=== PATIENT | female | born 1955 | race Caucasian/White ===

== ENCOUNTER 2017-07-24 15:44 | Inpatient (IN) | payer MEDICAID ==
[~2017-07-24] VITALS: Ht 170.2 cm; Wt 111.6 kg
[~2017-07-24 15:44] MED LIST: ACETAMINOPHEN-1 EAC1 PO; ACYCLOVIR 400400 MG PO; AMBIEN 5 MG TABL5 M1 PO; ASPIR 8181 MG PO; ATIVAN1 MG PO; AUGMENTIN 875875 MG PO; BACTRIM DS TAB1 EACH PO; BUTRANS1 EAC1 TD; CENTANY30 GM TP; CEPHALEXIN 500500 M3 PO; CLONAZEPAM 0.50.5 M1 PO; CLONAZEPAM 1 MG1 M1 PO; CODEINE-GUAIFE120 ML PO; CRESTOR10 MG PO; DENAVIR1.5 GM TP; DIFLUCAN150 MG PO; DIFLUCAN200 MG PO; FAMCICLOVIR250 MG PO; FLEXERIL PO; GLUMETZA1000 PO; HUMALOG100 UNIT/1 SUBQ; HYDROCHLOROTHIA25 M2 PO; HYDROCODON-ACE1 EAC8 PO; HYDROCODONE-AP1 EA11 PO; HYDROCODONE-AP1 EAC6 PO; HYDROCODONE-APA1 TA1 PO; IBUPROFEN 800800 M1 PO; IBUPROFEN IB200 MG PO; KEFLEX500 M1 PO; KEFLEX500 MG PO; KLOR-CON 1010 MEQ PO; LASIX 20 MG TAB20 MG PO; LEVAQUIN 500 M500 M2 PO; LEVAQUIN 750 M750 MG PO; LEXAPRO20 MG PO; LIDOCAINE 22 %/30 GM TOP; LIPITOR 20 MG T20 M1 PO; LISINOPRIL40 MG PO; MAG-AL PLUS SUS30 ML PO; MEDROLDOSEPACK PO; METFORMIN HCL500 MG PO; MIRALAX17 GM PO; MOM PO; NEURONTIN100 MG PO; NORCO 10-325 T1 EACH PO; NORCO 5-325 TA1 EACH PO; NORVASC5 MG PO; NOVOLIN R100 UNIT/3 SUBQ; PERCOCET PO; PROTONIX40 M1 PO; RANITIDINE 150150 M1 PO; ROBAXIN 750 MG750 M1 PO; ROBAXIN 750 MG750 MG PO; SONATA5 M1 PO; TESSALON PERLE100 MG PO; TRAZODONE 150150 M1 PO; TYLENOL325 MG PO; UNICOMPLEX M TA1 TA1 PO; VALACYCLOVIR HCL1 GM PO; VALACYCLOVIR1000 MG PO; VALIUM5 MG PO; VENTOLIN HFA 1818 GM INH; XARELTO15 MG PO; XARELTO20 MG PO; ZANAFLEX4 MG PO; ZANTAC 150MG T150 MG PO; ZOCOR20 MG PO; ZOCOR40 MG PO
[2017-07-24 15:46] VITALS: BP 101/66
[2017-07-24] MEDS ORDERED: BACTRIM DS TAB1 EACH PO (15:49)
[2017-07-24 18:06] LABS: ABSOLUTE BASOPHILS 0.1 thou/uL (0.0-0.2); ABSOLUTE LYMPHOCYTES 2.1 thou/uL (0.8-5.3); ABSOLUTE MONOCYTES 0.7 thou/uL (0.0-1.2); ABSOLUTE NEUTROPHILS 8.3 thou/uL (1.6-8.1); BASOPHILS 0.6 %; EOSINOPHILS 0.4 %; HEMATOCRIT 38.8 % (37.0-47.0); HEMOGLOBIN 12.8 gm/dL (12.0-15.0); LYMPHOCYTES 18.7 %; MCH 28.2 pg (26.0-34.0); MCHC 32.8 g/dL (28.0-37.0); MCV 85.8 fL (80.0-100.0); MONOCYTES 5.9 %; MPV 7.5 fl. (7.2-11.1); NUCLEATED RBCS 0 /100WBC; PLATELET COUNT* 346 thou/uL (150-400); POLYS 74.4 %; RBC 4.53 mil/uL (4.20-5.00); RDW-CV 14.8 % (10.5-14.5); WBC 11.1 thou/uL (4.0-11.0)
[2017-07-24 18:15] LABS: ANION GAP 8 mmol/L (7-16); BUN 10 mg/dL (7-18); CALCIUM 8.9 mg/dL (8.5-10.1); CHLORIDE 102 mmol/L (98-107); CO2 29 mmol/L (21-32); CREATININE 0.8 mg/dL (0.6-1.3); GLUCOSE 120 mg/dL (70-99); POTASSIUM 4.3 mmol/L (3.5-5.1); SODIUM 139 mmol/L (136-145)
[2017-07-24 18:22] LABS: ALBUMIN 3.5 g/dL (3.4-5.0); ALKALINE PHOSPHATASE 88 U/L (46-116); SGOT 20 U/L (15-37); SGPT 24 U/L (30-65); TOTAL BILIRUBIN 0.2 mg/dL (<0.1-1.0); TOTAL PROTEIN 7.4 g/dL (6.4-8.2); TROPONIN-I LEVEL <0.06 ng/mL (<0.06)
[2017-07-24 18:43] VITALS: BP 101/66
[2017-07-24] MEDS ORDERED: VICTOZA0.6 MG/0.1 SUBQ (20:24)
[2017-07-24] MEDS ORDERED: LANTUS100 UNIT/M SUBQ (20:25)
[2017-07-25 00:45] VITALS: BP 130/58
[2017-07-25 08:09] VITALS: BP 112/59
--- NOTE | 2017-07-25 12:50 | EKG ---
[place] [address] ELECTROCARDIOGRAM REPORT Name: IESHA HERNANDEZ Room: [address] ADM IN M.R.#: [id number] Admission: 07/24/17 Attend Phys: Frank Alatorre Discharge: Date of : 57 Report #: [id number] THIS REPORT FOR: //name// [facility] ED Test Date: 2017-07-24 Test Time: 17:51:54 Pat Name: IESHA HERNANDEZ Department: Room: [facility] Gender: F Camp Boss: SÁNCHEZ Leach : 1955 Requested By: Duke Polk Order Number: [id number] MD: Carlos Pena Measurements Intervals [place] Rate: 100 P: 35 [place]: 145 QRS: 13 QRSD: 90 T: 31 QT: 343 QTc: 443 Interpretive Statements Sinus tachycardia Compared to ECG 05/12/2017 13:34:16 Sinus rhythm no longer present Electronically Signed On 07-25-2017 12:50:12 INVESTOR RELATIONS DIRECTOR by Carlos Pena [email or web address] <ELECTRONICALLY SIGNED> By: Carlos Pena MD, [facility] 07/25/17 1250 1751 175 Carlos Pena MD, FACC /EPI
[2017-07-25 13:34] VITALS: BP 112/59
[2017-07-25 15:45] VITALS: BP 115/78
[2017-07-25 20:20] VITALS: BP 151/68
[2017-07-25 23:30] VITALS: BP 124/72
[2017-07-26 04:44] VITALS: BP 142/62
[2017-07-26 04:45] LABS: HEMATOCRIT 36.5 % (37.0-47.0); HEMOGLOBIN 12.1 gm/dL (12.0-15.0)
[2017-07-26 08:08] VITALS: BP 136/64
[2017-07-26 18:31] VITALS: BP 122/72
[2017-07-26 20:00] VITALS: BP 126/79; BP 97/57
[2017-07-26 23:21] VITALS: BP 119/73
[2017-07-27 04:18] LABS: HEMATOCRIT 32.6 % (37.0-47.0); MCH 28.8 pg (26.0-34.0); MCHC 33.8 g/dL (28.0-37.0); MCV 85.1 fL (80.0-100.0); MPV 8.1 fl. (7.2-11.1); RBC 3.83 mil/uL (4.20-5.00); RDW-CV 14.7 % (10.5-14.5); WBC 8.4 thou/uL (4.0-11.0)
[2017-07-27 04:51] LABS: ALBUMIN 2.9 g/dL (3.4-5.0); CALCIUM 8.7 mg/dL (8.5-10.1); CREATININE 0.9 mg/dL (0.6-1.3); MAGNESIUM 1.7 mg/dL (1.8-2.4); POTASSIUM 4.2 mmol/L (3.5-5.1); TOTAL BILIRUBIN 0.3 mg/dL (<0.1-1.0)
[2017-07-27 08:00] VITALS: BP 128/68
[2017-07-27 16:17] VITALS: BP 125/63
[2017-07-27 19:24] LABS: CREATININE 0.7 mg/dL (0.6-1.3)
[2017-07-27 19:26] LABS: POTASSIUM 4.8 mmol/L (3.5-5.1)
[2017-07-27 20:00] VITALS: BP 124/43
[2017-07-28 00:30] VITALS: BP 125/79
[2017-07-28 03:53] VITALS: BP 135/71
[2017-07-28 08:00] VITALS: BP 128/63
[2017-07-28 15:42] VITALS: BP 111/69
[2017-07-28 20:30] VITALS: BP 124/49
[2017-07-29 08:31] VITALS: BP 142/80
[2017-07-29 16:00] VITALS: BP 112/44
[2017-07-30 00:16] VITALS: BP 113/53
[2017-07-30 03:50] VITALS: BP 119/57
[2017-07-30 08:00] VITALS: BP 99/61
[2017-07-30 16:00] VITALS: BP 131/68
[2017-07-30 20:00] VITALS: BP 131/66
[2017-07-30 20:03] LABS: URINE BILIRUBIN NEGATIVE (Negative); URINE BLOOD NEGATIVE (Negative); URINE CLARITY CLEAR; URINE COLOR YELLOW; URINE GLUCOSE-RANDOM NEGATIVE (Negative); URINE KETONES NEGATIVE (Negative); URINE LEUKOCYTES NEGATIVE (Negative); URINE NITRITE NEGATIVE (Negative); URINE PROTEIN NEGATIVE (Negative); URINE SPECIFIC GRAVITY <= 1.005 (1.005-1.030); URINE UROBILINOGEN 0.2 E.U./dl (0.2-1.0)
[2017-07-31 00:50] VITALS: BP 144/72
[2017-07-31 03:39] LABS: HEMATOCRIT 31.5 % (37.0-47.0); HEMOGLOBIN 10.8 gm/dL (12.0-15.0); MCH 29.2 pg (26.0-34.0); MCHC 34.1 g/dL (28.0-37.0); MCV 85.5 fL (80.0-100.0); RBC 3.68 mil/uL (4.20-5.00); RDW-CV 14.9 % (10.5-14.5); WBC 5.5 thou/uL (4.0-11.0)
[2017-07-31 03:58] LABS: CREATININE 0.9 mg/dL (0.6-1.3); POTASSIUM 4.8 mmol/L (3.5-5.1)
[2017-07-31 07:53] VITALS: BP 153/78
[2017-07-31 13:33] VITALS: BP 151/73
[2017-07-31] MEDS ORDERED: EXTRA STRENGTH85 GM TOP (14:54)
[2017-07-31] MEDS ORDERED: ELIQUIS5 MG PO (14:54)
[2017-07-31] MEDS ORDERED: NORCO 7.5-3251 EACH PO (14:55)
[2017-07-31] MEDS ORDERED: OXYCODONE HCL15 MG PO (14:55)
[2017-07-31] MEDS ORDERED: ANECREAM5 GM TOP (14:55)
[2017-07-31 15:33] VITALS: BP 132/54
[2017-07-31 18:15] VITALS: BP 132/54
[2017-07-31 20:00] VITALS: BP 130/61
[2017-08-01 07:36] VITALS: BP 141/79
[2017-08-01 08:57] VITALS: BP 141/79
--- NOTE | 2017-08-09 07:37 | OP ---
[address] [address] OPERATIVE REPORT Name: IESHA HERNANDEZ Room: [address] IN ..#: [id number] Admission: 07/24/17 Attend Phys: Frank Alatorre Discharge: 08/01/17 Date of : 57 Report #: [id number] THIS REPORT FOR: //name// CC: Maxine Saravia DICTATED BY: Darius Kurtz DO DATE OF SERVICE: 07/25/2017 PREOPERATIVE DIAGNOSIS: Valgus impacted right femoral neck fracture. POSTOPERATIVE DIAGNOSIS: Valgus impacted right femoral neck fracture. PROCEDURE PERFORMED: 1. In situ pin fixation of the right valgus impacted femoral neck fracture. 2. Physician guided fluoroscopy, less than 1 hour. SURGEON: Giovanni Otto DO GREENS CUTTER: Darius Kurtz DO; Hannah Herrera DO ANESTHESIA: General. ESTIMATED BLOOD LOSS: 50 mL. SPECIMENS: None. COMPLICATIONS: None apparent. IMPLANTS: Cameron 6.5 mm cannulated screws with the following lengths: 1. 95 mm. 2. 95 mm. 3. 85 mm. INDICATIONS FOR PROCEDURE: The patient is a 62-year-old female who we were asked to see in regards to injury to her right hip. On 07/01/2017, she had a right hip arthroscopy and stem cell procedure done elsewhere. She states she was doing well; however, on 07/24/2017 she sustained a fall at home and landed directly on her right hip. She had immediate pain, was unable to bear weight. She was brought to the ED where x-rays and a CT were obtained. She was found to have a valgus impacted femoral neck fracture. For this reason, our services were consulted. We recommended in situ screw fixation. DESCRIPTION OF PROCEDURE: The patient was seen in the preoperative area where the risks, benefits, and alternatives of [place] [address] OPERATIVE REPORT Name: IESHA HERNANDEZ Room: [address] IN [facility].#: [id number] Admission: 07/24/17 Attend Phys: Frank Alatorre Discharge: 08/01/17 Date of : 57 Report #: [id number] questions were answered and she verbalized understanding. Written consent was obtained. The operative site was marked. The patient was then brought back to the operative suite and placed supine on a well-padded traction table. She was given the benefit of general LMA anesthesia. The operative leg was placed in a traction boot and the nonoperative leg was well padded and secured into place. C-arm was brought in and x-rays were obtained. The fracture was found to still be in a nondisplaced valgus impacted position. The right lower extremity was prepped and draped in normal sterile fashion. A surgical timeout was performed where again the side, site, and procedure were verified. Everyone present was in agreement. Fluoroscopy was used to determine the appropriate starting point. Once identified, a sharp dissection was performed through the skin and subcutaneous tissues through the IT band down to the level of bone. Our starting point for the inferior screw was identified using C-arm fluoroscopy. Once found to be in an appropriate position, the wire was introduced and brought to the subchondral bone. After this was in appropriate position confirmed on AP and lateral images, the guide was placed. The posterior superior screw was introduced and brought to subchondral bone, this was followed by the anterior superior. Once these were all in acceptable position, the drill was used to dilate the outer cortex. The screws were measured and found to be 95 mm for the inferior screw, 95 mm for the posterior superior screw and 90 mm for the anterior superior screw. These were introduced and screwed into place until they were found to be in appropriate position on imaging. The anterior superior screw was thought to be slightly too long, so the 90 mm screw was removed and an 85 mm screw was introduced. Once in acceptable position, final x-rays were obtained and saved to the PACS system. The wound was thoroughly irrigated. The IT band was closed with 0 Vicryl in a [id number]-vn-[id number] fashion. The subcuticular layer was closed with 2-0 Vicryl in simple interrupted inverted fashion. Skin was closed with andi. Sterile dressings were applied. The patient was awoken from anesthesia and transferred to PACU in stable condition. She tolerated this procedure well without obvious complications. Needle and sponge counts were correct x 2. Dr. Otto was present for all aspects of the case. <ELECTRONICALLY SIGNED> By: Rodrigo Danielson DO 08/09/17 0737 11 2046Alan Merrill Otto DO /nt
--- NOTE | 2017-08-26 15:02 | CON ---
[address] [address] CONSULTATION Name: IESHA HERNANDEZ Room: [address] IN M.R.#: [id number] Admission: 07/24/17 Attend Phys: Frank Alatorre Discharge: 08/01/17 Date of : 57 Report #: [id number] THIS REPORT FOR: //name// CC: Maxine Saravia REASON FOR CONSULTATION: Evaluation and recommendations regarding post-acute rehabilitation. HISTORY OF PRESENT ILLNESS: The patient is a 62-year-old female who was admitted status post fall from standing height on to the right side, sustaining a right femoral subcapital fracture which is status post IM nailing by Orthopedics. In the postoperative period, she has been participating in physical and occupational therapy and will need ongoing physical and occupational therapy to remain and return to independent to modified independent level of care. Her previous level of function was independent to modified independent with activities of daily living. She had recently had what sounds like a stem cell procedure done for that right hip pain and DJD. It apparently resulted in resolution of her pain; however, she fell onto that side and sustained a fracture. She does have multiple medical comorbidities including uncontrolled diabetes, chronic back pain, edema, hypertension, hidradenitis, hypercholesterolemia, insomnia, pilonidal cyst, ovary removed from tubal ligation, sleep apnea on CPAP in the past but no longer utilizing, removal of a lipoma, history of some anxiety, multiple bouts with pneumonia. She is currently at modified independent with bed mobility, standby assist with transfers, minimum assistance with 150 feet in gait. She is working with occupational therapy as well as modified independent with OT mobility, modified independent with grooming, bathing has not been tested, setup for upper body dressing and supervision for lower body dressing. It does not appear as though speech and language pathology has been consulted. She resides at home alone, has not utilized home health in the past, 17 steps to enter her apartment. She does have some restrictions to her Medicaid. It was also apparently inactive, but a professor of genetics has helped her to reactivate that. FAMILY HISTORY: Heart disease. SOCIAL HISTORY: She denies tobacco or recreational drug use, but she does drink one drink on special occasions. REVIEW OF SYSTEMS: A 10-point review of systems is done and is negative except as mentioned in HPI, specifically no fever, chest pain, shortness of breath, abdominal pain or distention. MEDICATIONS: Reviewed and are available in the [facility]. She is currently participating with physical therapy. ASSESSMENT: [place] [address] CONSULTATION Name: IESHA HERNANDEZ Room: [address] IN ..#: [id number] Admission: 07/24/17 Attend Phys: Frank Alatorre Discharge: 08/01/17 Date of : 57 Report #: [id number] 1. Status post right hip fracture from an accidental fall from standing height. 2. Multiple medical comorbidities including uncontrolled diabetes, hypertension, hyperlipidemia. 3. Significant alterations in activities of daily living with restrictions on ability to enter housing due to number of steps. PLAN: 1. Recommend acute inpatient rehabilitation to facilitate safe discharge in the home setting. 2. PT and OT to continue during the acute timeframe. 3. We will follow daily. <ELECTRONICALLY SIGNED> By: Britney Reyez DO 08/26/17 1502 1125 1849Britney Reyez DO /nt
== END 2017-08-01 16:40 | disposition home or self-care (01) | DRG 482 ==
LOC: M.ERS 15:44 → M.ORTHSURG 17:15 → M.TBA-ER 17:15 → M.ORTHSURG 17:15
PROVIDERS: Emergency Medicine Emergency Medical Services; Family Medicine; Orthopaedic Surgery; ADMIT Internal Medicine
PROC: 0QH634Z Insertion of Internal Fixation Device into Right Upper Femur, Percutaneous Approach (ICD-10-PCS; principal; 2017-07-25)
DX: S72.011A Unspecified intracapsular fracture of right femur, initial encounter for closed fracture (principal); W17.89XA Other fall from one level to another, initial encounter; M19.90 Unspecified osteoarthritis, unspecified site; E11.9 Type 2 diabetes mellitus without complications; I10 Essential (primary) hypertension; E78.00 Pure hypercholesterolemia, unspecified; F32.9 Major depressive disorder, single episode, unspecified; F41.9 Anxiety disorder, unspecified; G89.29 Other chronic pain; M54.9 Dorsalgia, unspecified; Z88.8 Allergy status to other drugs, medicaments and biological substances; Y93.89 Activity, other specified; Y92.89 Other specified places as the place of occurrence of the external cause; Z82.49 Family history of ischemic heart disease and other diseases of the circulatory system; Y99.8 Other external cause status

== ENCOUNTER 2017-08-09 13:38 | Emergency (ER) | payer MEDICAID ==
[~2017-08-09] VITALS: Ht 170.2 cm; Wt 108.9 kg
[~2017-08-09 13:38] MED LIST changes: +ANECREAM5 GM TOP; +ELIQUIS5 MG PO; +EXTRA STRENGTH85 GM TOP; +LANTUS100 UNIT/M SUBQ; +NORCO 7.5-3251 EACH PO; +OXYCODONE HCL15 MG PO; +VICTOZA0.6 MG/0.1 SUBQ
[2017-08-09 16:08] VITALS: BP 125/77
== END 2017-08-09 16:09 | disposition home or self-care (01) ==
LOC: M.ERS 13:38
DX: S70.01XA Contusion of right hip, initial encounter (principal); S00.83XA Contusion of other part of head, initial encounter; E11.9 Type 2 diabetes mellitus without complications; I10 Essential (primary) hypertension; E78.00 Pure hypercholesterolemia, unspecified; G47.30 Sleep apnea, unspecified; G89.29 Other chronic pain; M54.9 Dorsalgia, unspecified; Z90.721 Acquired absence of ovaries, unilateral; Z86.711 Personal history of pulmonary embolism; Z88.7 Allergy status to serum and vaccine; Z79.4 Long term (current) use of insulin; W01.0XXA Fall on same level from slipping, tripping and stumbling without subsequent striking against object, initial encounter; Y93.89 Activity, other specified; Y92.89 Other specified places as the place of occurrence of the external cause; Y99.8 Other external cause status

== ENCOUNTER 2017-08-12 17:14 | Emergency (ER) | payer MEDICAID ==
[~2017-08-12] VITALS: Ht 170.2 cm; Wt 108.4 kg
[2017-08-12] MEDS ORDERED: HYDROCODONE-AP1 EAC6 PO (17:27)
[2017-08-12] MEDS ORDERED: HYDROCODONE-ACE15 ML PO (18:14)
[2017-08-12 18:26] VITALS: BP 135/77
== END 2017-08-12 18:27 | disposition home or self-care (01) ==
LOC: M.ERS 17:14
DX: R51 Headache (principal); M25.552 Pain in left hip; Z76.0 Encounter for issue of repeat prescription; E11.9 Type 2 diabetes mellitus without complications; I10 Essential (primary) hypertension; E78.5 Hyperlipidemia, unspecified; G47.30 Sleep apnea, unspecified; F32.9 Major depressive disorder, single episode, unspecified; F41.9 Anxiety disorder, unspecified; G89.29 Other chronic pain; M54.9 Dorsalgia, unspecified; Z86.711 Personal history of pulmonary embolism; Z88.7 Allergy status to serum and vaccine; Z79.4 Long term (current) use of insulin

== ENCOUNTER 2017-09-24 10:58 | Emergency (ER) | payer MEDICAID ==
[~2017-09-24] VITALS: Ht 167.6 cm; Wt 95.3 kg
[~2017-09-24 10:58] MED LIST changes: +HYDROCODONE-ACE15 ML PO
[2017-09-24] MEDS ORDERED: ASPIR 8181 MG PO (11:14)
[2017-09-24 12:51] VITALS: BP 128/70
== END 2017-09-24 12:52 | disposition home or self-care (01) ==
LOC: M.ERS 10:58
DX: M79.605 Pain in left leg (principal); M79.604 Pain in right leg; E11.9 Type 2 diabetes mellitus without complications; I10 Essential (primary) hypertension; E78.00 Pure hypercholesterolemia, unspecified; G89.29 Other chronic pain; M54.9 Dorsalgia, unspecified; F41.9 Anxiety disorder, unspecified; F32.9 Major depressive disorder, single episode, unspecified; Z88.7 Allergy status to serum and vaccine; Z79.4 Long term (current) use of insulin

== ENCOUNTER 2017-10-19 19:06 | Inpatient (IN) | payer MEDICAID ==
[~2017-10-19] VITALS: Ht 170.2 cm; Wt 122.5 kg
[2017-10-19 19:18] VITALS: BP 135/67
[2017-10-19 20:00] LABS: ABSOLUTE BASOPHILS 0.1 thou/uL (0.0-0.2); ABSOLUTE EOSINOPHILS 0.3 thou/uL (0.0-0.7); ABSOLUTE LYMPHOCYTES 1.4 thou/uL (0.8-5.3); ABSOLUTE MONOCYTES 0.8 thou/uL (0.0-1.2); ABSOLUTE NEUTROPHILS 9.9 thou/uL (1.6-8.1); EOSINOPHILS 2.1 %; HEMATOCRIT 36.1 % (37.0-47.0); HEMOGLOBIN 11.7 gm/dL (12.0-15.0); MCH 27.3 pg (26.0-34.0); MCHC 32.5 g/dL (28.0-37.0); MCV 83.9 fL (80.0-100.0); MONOCYTES 6.7 %; MPV 7.8 fl. (7.2-11.1); NUCLEATED RBCS 0 /100WBC; PLATELET COUNT* 247 thou/uL (150-400); POLYS 79.2 %; RDW-CV 15.2 % (10.5-14.5); WBC 12.5 thou/uL (4.0-11.0)
[2017-10-19 20:28] LABS: TROPONIN-I LEVEL <0.06 ng/mL (<0.06)
[2017-10-19 21:24] LABS: CALCIUM 9.4 mg/dL (8.5-10.1); CREATININE 0.9 mg/dL (0.6-1.3)
[2017-10-19 21:29] LABS: ALBUMIN 3.6 g/dL (3.4-5.0); TOTAL BILIRUBIN 0.5 mg/dL (<0.1-1.0); TOTAL PROTEIN 7.7 g/dL (6.4-8.2)
--- NOTE | 2017-10-19 22:31 | NUR ---
Pt up to bedside commode. Pt capable of standing on both feet and transferring to commode with minimal assistance. Pt cursing at staff and raising voice. Pt asked to lower voice and to not curse. Provider notified of pt's ability to stand unassisted.
[2017-10-19 22:35] LABS: URINE BILIRUBIN NEGATIVE (Negative); URINE BLOOD NEGATIVE (Negative); URINE CLARITY CLEAR; URINE COLOR YELLOW; URINE GLUCOSE-RANDOM NEGATIVE (Negative); URINE KETONES NEGATIVE (Negative); URINE LEUKOCYTES-REFLEX NEGATIVE (Negative); URINE NITRITE-REFLEX NEGATIVE (Negative); URINE PROTEIN NEGATIVE (Negative); URINE SPECIFIC GRAVITY 1.025 (1.005-1.030); URINE UROBILINOGEN 0.2 E.U./dl (0.2-1.0)
[2017-10-19 22:36] LABS: PHOSPHORUS* 3.8 mg/dL (2.5-4.9); URIC ACID* 5.8 mg/dL (2.6-7.2)
[2017-10-19 22:42] LABS: AMP/METHAMP Negative (Negative); BARBITURATES Negative (Negative); BENZODIAZEPINES Negative (Negative); COCAINE Negative (Negative); METHADONE Negative (Negative); OPIATES POSITIVE (Negative); PCP Negative (Negative); THC Negative (Negative)
[2017-10-20 03:05] VITALS: BP 110/50
[2017-10-20 04:17] LABS: CALCIUM 8.9 mg/dL (8.5-10.1); CREATININE 0.8 mg/dL (0.6-1.3); POTASSIUM 3.9 mmol/L (3.5-5.1)
--- NOTE | 2017-10-20 12:24 | NUR ---
PATIENT ASSISTED TO GET UP AND AMBULATED SELF WITH CANE UP KILLIAN TO RESTROOM. INSTRUCTED TO USE RED STRING/CALL LIGHT FOR ASSISTANCE. STEADY ON FEET.
[2017-10-20 13:27] VITALS: BP 142/89
[2017-10-20 14:00] VITALS: BP 125/56
--- NOTE | 2017-10-20 15:41 | NUR ---
PT ADMITTED TO UNIT AROUND 1330 PT IS ALERT AND ORIENTED X 4 PT PT C/O PAIN HAD PAIN MEDS BEFORE COMING TO UNIT PT STATES " I WANT PAIN SHOT" TALKED WITH PHYSICIAN ABOUT IV PAIN MEDS NO NEW ORDERS PHYSICIAN ORDERS FOR PT TO REMAIN ON PO PAIN MEDS, PT HAD RIGHT HIP SURGERY PT IS UP WITH ASSIST X 1 WITH CANE, PT DENIES SOA ON RA, PT HAS ORDER FROM NEUROLOGY FOR MRI PAGED NEUROLOGY IF ORDER NEEDS TO BE DONE TODAY AWAITING CALL BACK, PT IS A FALL RISK BED ALARM IS ON PT IS UPSET ABOUT BED ALARM THIS NURSE EDUCATED PT ON THE IMPORTANCE OF THE BED ALARM HOSPITALS POLICY PT STATES UNDERSTANDING, PT PURSE IS IN ROOM WITH PT WHICH PT WANTS TO KEEP WITH HER, PT IS ON CARB CONTROL DIET PT EDUCATED ON THE IMPORTANCE OF DIET AND FOLLOWING DIET, WILL CONTINUE TO MONITOR
--- NOTE | 2017-10-20 15:56 | EKG ---
[place] [address] ELECTROCARDIOGRAM REPORT Name: IESHA HERNANDEZ Room: [address] IN ..#: [id number] Admission: 10/19/17 Attend Phys: Priyank Talavera, Discharge: Date of : 57 Report #: [id number] THIS REPORT FOR: //name// [facility] ED Test Date: 2017-10-19 Test Time: 19:23:06 Pat Name: IESHA HERNANDEZ Department: Room: Gender: F Paymaster Of Purses: : 1955 Requested By: Maricel Mazariegos Order Number: [id number] MD: Carlos Pena Measurements Intervals [place] Rate: 111 P: 27 [place]: 152 QRS: 10 QRSD: 84 T: 51 QT: 306 QTc: 416 Interpretive Statements Sinus tachycardia Baseline wander in lead(s) V5 Compared to ECG 07/24/2017 17:51:54 No significant changes Electronically Signed On 10-20-2017 15:56:10 CDT by Carlos Pena [email or web address] <ELECTRONICALLY SIGNED> By: Carlos Pena MD, [facility] 10/20/17 1556 22 22 Carlos Pena MD, [facility] /EPI
[2017-10-20 19:46] VITALS: BP 120/59
[2017-10-21 00:44] VITALS: BP 133/63
[2017-10-21 04:01] VITALS: BP 117/67
--- NOTE | 2017-10-21 04:38 | NUR ---
Pt had requested increase in pain medication. Reports she takes Vicodin 10/325, 2 pills TID. Also requested to have Ambien for sleep per home dose. RN from previous shift inquired about pain medicine, and this RN inquired about the sleeping pill; but physicians are limiting narcotic orders due to diagnosis and pt's ecreased LOC on admission. This explanation was communicated to pt, and pt verbalized understanding. Pt has been alert and oriented for this shift, and awakens easily with minimal verbal stimulation when sleeping. VSS; SR per monitor. At 0430 pt called requesting pain medication. Pt appeared tense with grimaced expression, and c/o severe pain to back and bilat legs rating 10/10. Pain medication is ordered q6h prn, but it had been just over 4 hours since last pain med. I adminsitered a dose early due to apparent severity of pain, and given that she was alert and oriented. Pt reports that pain continues to be severe, stating this is worse than normal. Pt asked if the increased pain could be due to the rhabdomyolysis. Will continue to monitor.
[2017-10-21 05:23] LABS: HEMATOCRIT 32.2 % (37.0-47.0); HEMOGLOBIN 10.8 gm/dL (12.0-15.0); MCHC 33.6 g/dL (28.0-37.0); MCV 83.3 fL (80.0-100.0); RBC 3.86 mil/uL (4.20-5.00); RDW-CV 15.4 % (10.5-14.5); WBC 9.8 thou/uL (4.0-11.0)
[2017-10-21 06:16] LABS: ALBUMIN 2.9 g/dL (3.4-5.0); CALCIUM 8.6 mg/dL (8.5-10.1); CREATININE 0.6 mg/dL (0.6-1.3); MAGNESIUM 1.6 mg/dL (1.8-2.4); POTASSIUM 4.9 mmol/L (3.5-5.1); TOTAL BILIRUBIN 0.2 mg/dL (<0.1-1.0)
[2017-10-21 08:30] VITALS: BP 136/67
--- NOTE | 2017-10-21 08:39 | NUR ---
ASSUMED PT. CARE AND RECEIVED REPORT AT 0730. PT A/OX4, FLAT AFFECT, VSS, MONITOR ON TRACING SR. PT. C/O PAIN 8/10 IN BACK/RIGHT HIP/LEGS BILAT. ON RA @ 94%. FULL ASSESSMENT COMPLETED, REFER TO CHARTING. PT. REPORTS PAIN MEDICATION IS NOT ENOUGH. STATES SHE CAN HANDLE A RESONABLE PAIN LEVEL OF 5/10, BUT CURRENTLY NOT WELL CONTROLLED. PLAN OF CARE DISCUSSED INCLUDING SPEAKING TO DR. BILL ABOUT PAIN MANAGEMENT, PT. AGREEABLE. PT. ASSISTED UP TO CHAIR WITH CANE FOR BREAKFAST. CALL LIGHT IN REACH, WILL CONTINUE WITH PLAN OF CARE.
[2017-10-21 11:20] VITALS: BP 148/59
[2017-10-21 15:19] VITALS: BP 130/64
[2017-10-21 16:20] VITALS: BP 130/64
--- NOTE | 2017-10-21 17:19 | NUR ---
DC ORDERS RECEIVED. IV AND MONITOR REMOVED POST FLUID BOLUS, PER ORDERS. PT. GIVEN DC INSTRUCTIONS, VERBALIZED UNDERSTANDING. PT. LEFT WITH FAMILY TO RETURN HOME IN PERSONAL VEHICLE, ALL BELONGINGS ACCOUNTED FOR.
--- NOTE | 2017-10-21 20:24 | CON ---
[address] [address] CONSULTATION Name: IESHA HERNANDEZ Room: [address] IN M.R.#: [id number] Admission: 10/19/17 Attend Phys: Priyank Talavera, Discharge: 10/21/17 Date of : 57 Report #: [id number] THIS REPORT FOR: //name// CC: MARCE physician/PCP Priyank Talavera DATE OF SERVICE: 10/20/2017 HISTORY OF PRESENT ILLNESS: This is a 62-year-old female patient who is not able to provide any reliable history. I reviewed the patient's records and it looks like they had faced the same problems. She tells me that she is having difficulty with ambulation. She indicates that this started about 2-3 weeks ago and is becoming worse. Then, she tells me that she had a hip surgery about 2 months ago and that is the time she started having these symptoms. She denies any trauma. She does indicate that she had back issues in the past. They have found the bulging disk. She does not know what the testing was done. She described her symptoms as moderately severe. There is some history that she may have had some associated confusion, but she denies it. REVIEW OF SYSTEMS: Is partly from the record because her history is not clear and looks like she has multiple problems at one time or another. She has a right hip problem. She had surgery there. She has history of pneumonia, gallstone, PE, knee issues, falls, chronic back pain, depression, anxiety, ovary removed, hypercholesterolemia, hypertension, diabetes. She does not know whether her diabetes is controlled. I carried out the 14-point review of systems. She does complain of multiple other symptoms, but is not very clear about the history. She said she had some lipoma removed. She does have a history of sleep apnea. I do not know whether that is much of a problem. She indicates she is not on any treatment. She denied any visual, ENT, cardiac, respiratory, GI, , constitutional, dermatological, hematological, throat, allergic symptom associated with present symptomatology. She does have a history of anxiety. PAST MEDICAL HISTORY: Positive for hip surgery and back pain. FAMILY HISTORY: Noncontributory. SOCIAL HISTORY: She does not smoke. PHYSICAL EXAMINATION: Indicates she is alert. She is responsive. She can follow simple commands. Her memory looks poor, but she says she lives by herself. Her fund of knowledge is also poor. Speech looks unremarkable. Cranial nerve examination 2-12 is unremarkable. She moves all 4 extremities. She does not move the right hip area. Her position sense looks intact. Her reflexes are diminished. Tone looks unremarkable. She has no cerebellar sign. She could not cooperate with the fundus examination. [place] [address] CONSULTATION Name: IESHA HERNANDEZ Room: [address]#: [id number] Admission: 10/19/17 Attend Phys: Priyank Talavera, Discharge: 10/21/17 Date of : 57 Report #: [id number] individual who is obese. Her hearing and vision look adequate. Pulses are difficult to feel, but she has no edema, cyanosis or jaundice. Cardiac examination is unremarkable. No respiratory difficulty or rhonchi. Blood pressure is 135/62, pulse is 100, respiration is 77. LABORATORY DATA: White count is slightly high at 12.5. She did have a CT scan of the head, which does not show any acute changes. IMPRESSION: It is very difficult to tell in this patient because the history is so unclear. She tells me there is no contraindication for MRI. We will try to get an MRI of the spine and maybe MRI of the brain. We will get her evaluated by PT, OT. I will also get an EEG done in this patient. We will see what this workup shows and then decide about the further treatment. RECOMMENDATIONS: 1. MRI of the lumbar and thoracic spine. 2. Some time she will need an EMG. 3. Some additional workup. 4. PT, OT. 5. May need an MRI of the brain later on. Thank you very much for this referral and we will follow this patient along with you. <ELECTRONICALLY SIGNED> By: Khanh Rock MD 10/21/172023 1000 1832Pjacque Rock MD /nt
--- NOTE | 2017-10-23 11:23 | CON ---
[address] [address] CONSULTATION Name: IESHA HERNANDEZ Room: [address] IN M.R.#: [id number] Admission: 10/19/17 Attend Phys: Priyank Talavera, Discharge: 10/21/17 Date of : 57 Report #: [id number] THIS REPORT FOR: //name// CC: MARCE physician/PCP Priyank Talavera DATE OF SERVICE: 10/21/2017 REQUESTING PHYSICIAN: Priyank Talavera MD REASON FOR CONSULTATION: Rhabdomyolysis. HISTORY OF PRESENT ILLNESS: The patient is a very pleasant 62-year-old female with medical history significant for diabetes mellitus type 2, history of degenerative joint disease, history of right hip fracture, history of obesity, anxiety, chronic back pain, presents to the hospital with complaints of leg pain. The pain is primarily on the right side, but she also has pain in the left thigh and states that the pain to the point where she cannot walk and she was asking for more narcotics. She is on chronic oxycodone and hydrocodone for chronic pain problems. PAST MEDICAL HISTORY: As mentioned earlier. The patient when she came to the Emergency Room, was evaluated and was found to be in rhabdomyolysis with a CPK more than 5000. Her BUN and creatinine are normal. SOCIAL HISTORY: She does not smoke or drink and never smoked. MEDICATIONS: Prior to admission reviewed. From my standpoint, she was on Crestor 10 mg a day. PHYSICAL EXAMINATION: GENERAL: Awake, alert, oriented, asking for more pain medications. VITAL SIGNS: Blood pressure is 136/67, heart rate 97, afebrile. HEENT: Pupils are round. NECK: Supple. LUNGS: Clear. CARDIOVASCULAR: Regular rate. ABDOMEN: Soft, obese. LOWER EXTREMITIES: No edema. LABORATORY DATA: Report revealed normal creatinine. Her CPK on admission was 4166 down to 3018 yesterday and down to 1311 [place] [address] CONSULTATION Name: IESHA HERNANDEZ Room: [address]#: [id number] Admission: 10/19/17 Attend Phys: Priyank Talavera, Discharge: 10/21/17 Date of : 57 Report #: [id number] ASSESSMENT: Rhabdomyolysis, most likely due to Crestor, make sure that she is not on those cholesterol medications. Her CPK level is decreasing rapidly with IV fluids. PLAN: At this point, we will continue with IV fluids for another day until CPK is less than 1000. From my standpoint, she is stable. Creatinine is normal and rhabdomyolysis is resolving. Thank you very much for asking my opinion on rhabdomyolysis of the patient. I will sign off. <ELECTRONICALLY SIGNED> By: Marvin Matute MD 10/23/17 1123 1006 2339AlexMD STEVE Chan
== END 2017-10-21 17:20 | disposition home or self-care (01) | DRG 558 ==
LOC: M.ERS 19:06 → M.TBA-ER 22:55 → M.2W 10-20 13:57
PROVIDERS: Emergency Medicine; Nurse Practitioner Family; ADMIT Family Medicine
DX: M62.82 Rhabdomyolysis (principal); Z68.41 Body mass index [BMI] 40.0-44.9, adult; E11.9 Type 2 diabetes mellitus without complications; I10 Essential (primary) hypertension; E78.00 Pure hypercholesterolemia, unspecified; F32.9 Major depressive disorder, single episode, unspecified; F41.9 Anxiety disorder, unspecified; R26.9 Unspecified abnormalities of gait and mobility; G89.29 Other chronic pain; M54.5 Low back pain; K21.9 Gastro-esophageal reflux disease without esophagitis; G47.33 Obstructive sleep apnea (adult) (pediatric); R79.89 Other specified abnormal findings of blood chemistry; E66.01 Morbid (severe) obesity due to excess calories; T46.6X5A Adverse effect of antihyperlipidemic and antiarteriosclerotic drugs, initial encounter; R29.6 Repeated falls; T40.605A Adverse effect of unspecified narcotics, initial encounter; M19.90 Unspecified osteoarthritis, unspecified site; Z86.711 Personal history of pulmonary embolism; Z79.4 Long term (current) use of insulin; Z87.81 Personal history of (healed) traumatic fracture; Z90.721 Acquired absence of ovaries, unilateral; Z79.84 Long term (current) use of oral hypoglycemic drugs; Y92.89 Other specified places as the place of occurrence of the external cause; Z79.899 Other long term (current) drug therapy; Z88.7 Allergy status to serum and vaccine; Z82.49 Family history of ischemic heart disease and other diseases of the circulatory system

== ENCOUNTER 2017-12-29 07:17 | Emergency (ER) | payer MEDICAID ==
[~2017-12-29] VITALS: Ht 170.2 cm; Wt 111.1 kg
[2017-12-29 08:06] LABS: URINE BILIRUBIN NEGATIVE (Negative); URINE BLOOD TRACE (Negative); URINE CLARITY CLEAR; URINE COLOR YELLOW; URINE GLUCOSE-RANDOM TRACE (Negative); URINE KETONES NEGATIVE (Negative); URINE LEUKOCYTES-REFLEX NEGATIVE (Negative); URINE NITRITE-REFLEX NEGATIVE (Negative); URINE PROTEIN NEGATIVE (Negative); URINE SPECIFIC GRAVITY 1.025 (1.005-1.030); URINE UROBILINOGEN 0.2 E.U./dl (0.2-1.0)
[2017-12-29 08:25] LABS: HEMATOCRIT 33.3 % (37.0-47.0); HEMOGLOBIN 11.1 gm/dL (12.0-15.0); MCH 27.3 pg (26.0-34.0); MCHC 33.2 g/dL (28.0-37.0); MCV 82.2 fL (80.0-100.0); MPV 7.8 fl. (7.2-11.1); NUCLEATED RBCS 0 /100WBC; PLATELET COUNT* 262 thou/uL (150-400); RBC 4.05 mil/uL (4.20-5.00); RDW-CV 14.9 % (10.5-14.5); WBC 13.7 thou/uL (4.0-11.0)
[2017-12-29 08:35] LABS: POTASSIUM 3.8 mmol/L (3.5-5.1)
[2017-12-29 08:36] LABS: CALCIUM 8.6 mg/dL (8.5-10.1); CREATININE 0.8 mg/dL (0.6-1.3)
[2017-12-29 08:49] LABS: ABSOLUTE EOSINOPHILS 0.1 thou/uL (0.0-0.7); ABSOLUTE MONOCYTES 0.3 thou/uL (0.0-1.2); ABSOLUTE NEUTROPHILS 12.3 thou/uL (1.6-8.1)
[2017-12-29 08:50] LABS: PLATELET ESTIMATE ADEQUATE
[2017-12-29] MEDS ORDERED: DOXYCYCLINE 10100 MG PO (10:29)
--- NOTE | 2017-12-29 10:40 | EKG ---
[place] [address] ELECTROCARDIOGRAM REPORT Name: IESHA HERNANDEZ [facility] [id number] Admission: 12/29/17 Attend Phys: Discharge: Date of : 57 Report #: [id number] THIS REPORT FOR: //name// [facility] ED Test Date: 2017-12-29 Test Time: 08:22:48 Pat Name: IESHA HERNANDEZ Department: Room: Gender: F Battery Tester Field: : 1955 Requested By: Duke Polk Order Number: [id number] MD: Marc Lamb Measurements Intervals [place] Rate: 117 P: 29 ND: 156 QRS: 12 QRSD: 88 T: 33 QT: 322 QTc: 450 Interpretive Statements Sinus tachycardia Probable left atrial enlargement Abnormal R-wave progression, early transition Compared to ECG 10/19/2017 19:23:06 No significant changes Electronically Signed On 12-29-2017 10:39:52 CDT by Marc Lamb [email or web address] <ELECTRONICALLY SIGNED> By: Tsering Lamb MD, [facility] 12/29/17 1039 1 1 Tsering Lamb MD, [facility] /EPI
[2017-12-29 10:46] VITALS: BP 117/46
== END 2017-12-29 10:47 | disposition home or self-care (01) ==
LOC: M.ERS 07:17
PROVIDERS: Emergency Medicine Emergency Medical Services
DX: J18.9 Pneumonia, unspecified organism (principal); M25.551 Pain in right hip; M79.605 Pain in left leg; M54.2 Cervicalgia; E11.9 Type 2 diabetes mellitus without complications; I10 Essential (primary) hypertension; E78.00 Pure hypercholesterolemia, unspecified; G47.30 Sleep apnea, unspecified; F32.9 Major depressive disorder, single episode, unspecified; F41.9 Anxiety disorder, unspecified; G89.29 Other chronic pain; M54.9 Dorsalgia, unspecified; Z90.721 Acquired absence of ovaries, unilateral; Z86.711 Personal history of pulmonary embolism; Z88.7 Allergy status to serum and vaccine

== ENCOUNTER 2018-01-27 07:06 | Emergency (ER) | payer MEDICAID ==
[~2018-01-27] VITALS: Ht 170.2 cm; Wt 119.8 kg
[~2018-01-27 07:06] MED LIST changes: +DOXYCYCLINE 10100 MG PO
[2018-01-27] MEDS ORDERED: CYCLOBENZAPRINE5 MG PO (09:19)
[2018-01-27] MEDS ORDERED: MEDROLDOSEPACK PO (09:19)
[2018-01-27 09:25] VITALS: BP 152/84
== END 2018-01-27 09:33 | disposition home or self-care (01) ==
LOC: M.ERS 07:06
DX: G89.29 Other chronic pain (principal); M79.604 Pain in right leg; M79.605 Pain in left leg; E11.9 Type 2 diabetes mellitus without complications; I10 Essential (primary) hypertension; E78.00 Pure hypercholesterolemia, unspecified; Z79.82 Long term (current) use of aspirin; Z88.7 Allergy status to serum and vaccine

== ENCOUNTER 2018-02-22 19:31 | Emergency (ER) | payer MEDICAID ==
[~2018-02-22] VITALS: Ht 170.2 cm; Wt 111.6 kg
[~2018-02-22 19:31] MED LIST changes: +CYCLOBENZAPRINE5 MG PO
[2018-02-22] MEDS ORDERED: METFORMIN HCL500 MG PO (20:09)
[2018-02-22 20:17] LABS: ABSOLUTE BASOPHILS 0.1 thou/uL (0.0-0.2); ABSOLUTE EOSINOPHILS 0.2 thou/uL (0.0-0.7); ABSOLUTE LYMPHOCYTES 1.9 thou/uL (0.8-5.3); ABSOLUTE MONOCYTES 0.8 thou/uL (0.0-1.2); ABSOLUTE NEUTROPHILS 6.4 thou/uL (1.6-8.1); BASOPHILS 0.6 %; EOSINOPHILS 2.4 %; HEMATOCRIT 32.5 % (37.0-47.0); HEMOGLOBIN 10.7 gm/dL (12.0-15.0); LYMPHOCYTES 20.5 %; MCH 26.7 pg (26.0-34.0); MCV 81.1 fL (80.0-100.0); MONOCYTES 8.2 %; MPV 7.5 fl. (7.2-11.1); NUCLEATED RBCS 0 /100WBC; PLATELET COUNT* 251 thou/uL (150-400); POLYS 68.3 %; RBC 4.01 mil/uL (4.20-5.00); RDW-CV 15.6 % (10.5-14.5); WBC 9.4 thou/uL (4.0-11.0)
[2018-02-22 20:29] LABS: ANION GAP 4 mmol/L (7-16); BUN 18 mg/dL (7-18); CALCIUM 8.5 mg/dL (8.5-10.1); CHLORIDE 100 mmol/L (98-107); CO2 30 mmol/L (21-32); CREATININE 0.7 mg/dL (0.6-1.3); GLUCOSE 215 mg/dL (70-99); POTASSIUM 3.5 mmol/L (3.5-5.1); SODIUM 134 mmol/L (136-145)
[2018-02-22 20:45] LABS: ALBUMIN 3.3 g/dL (3.4-5.0); ALKALINE PHOSPHATASE 90 U/L (46-116); CK-MB MASS 1.7 ng/mL (<0.5-3.6); NT-PRO BRAIN NAT PEPTIDE 93 pg/mL (<300); SGOT 15 U/L (15-37); SGPT 24 U/L (30-65); TOTAL BILIRUBIN 0.2 mg/dL (<0.1-1.0); TOTAL PROTEIN 6.8 g/dL (6.4-8.2); TROPONIN-I LEVEL <0.06 ng/mL (<0.06)
[2018-02-22 21:24] LABS: URINE BILIRUBIN NEGATIVE (Negative); URINE BLOOD NEGATIVE (Negative); URINE CLARITY CLEAR; URINE COLOR YELLOW; URINE GLUCOSE-RANDOM NEGATIVE (Negative); URINE KETONES NEGATIVE (Negative); URINE LEUKOCYTES-REFLEX 1+ (Negative); URINE NITRITE-REFLEX NEGATIVE (Negative); URINE PROTEIN NEGATIVE (Negative); URINE UROBILINOGEN 0.2 E.U./dl (0.2-1.0)
[2018-02-22] MEDS ORDERED: KEFLEX500 M1 PO (21:35)
[2018-02-22 21:53] LABS: CASTS None Seen /LPF (None Seen); SQUAMOUS >10 Many /LPF (0-3)
[2018-02-22 21:54] LABS: CRYSTALS None Seen /LPF (None Seen); URINE RBC None Seen /HPF (0-2); URINE WBC-REFLEX 6-15 Few /HPF (0-5)
[2018-02-22 22:02] VITALS: BP 108/72
--- NOTE | 2018-02-23 14:00 | EKG ---
[place] [address] ELECTROCARDIOGRAM REPORT Name: IESHA HERNANDEZ Room: [facility]#: [id number] Admission: 02/22/18 Attend Phys: Discharge: 02/22/18 Date of : 57 Report #: [id number] THIS REPORT FOR: //name// [facility] ED Test Date: 2018-02-22 Test Time: 19:55:17 Pat Name: IESHA HERNANDEZ Department: Room: Gender: F Firer Boiler: ASHLEY : 1955 Requested By: Rosemarie Barrientos Order Number: [id number] MD: Marc Lamb Measurements Intervals [place] Rate: 105 P: 29 MD: 163 QRS: 7 QRSD: 87 T: 31 QT: 333 QTc: 441 Interpretive Statements Sinus tachycardia Abnormal R-wave progression, early transition Compared to ECG 12/29/2017 08:22:48 No significant changes Electronically Signed On 02-23-2018 13:59:52 CDT by Marc Lamb [email or web address] <ELECTRONICALLY SIGNED> By: Tsering Lamb MD, [facility] 02/23/18 1359 54 54 Tsering Lamb MD, FAC /EPI
== END 2018-02-22 21:50 | disposition home or self-care (01) ==
LOC: M.ERS 19:31
PROVIDERS: Personal Emergency Response Attendant
DX: N39.0 Urinary tract infection, site not specified (principal); R22.42 Localized swelling, mass and lump, left lower limb; E11.9 Type 2 diabetes mellitus without complications; I10 Essential (primary) hypertension; E78.00 Pure hypercholesterolemia, unspecified; F32.9 Major depressive disorder, single episode, unspecified; F41.9 Anxiety disorder, unspecified; G89.29 Other chronic pain; M54.9 Dorsalgia, unspecified; Z87.01 Personal history of pneumonia (recurrent); Z88.7 Allergy status to serum and vaccine

== ENCOUNTER 2018-02-24 16:34 | Emergency (ER) | payer MEDICAID ==
[~2018-02-24] VITALS: Ht 167.6 cm; Wt 123.1 kg
[2018-02-24 17:36] VITALS: BP 138/77
== END 2018-02-24 17:40 | disposition home or self-care (01) ==
LOC: M.ERS 16:34
DX: S00.83XA Contusion of other part of head, initial encounter (principal); E11.9 Type 2 diabetes mellitus without complications; I10 Essential (primary) hypertension; E78.00 Pure hypercholesterolemia, unspecified; Z90.721 Acquired absence of ovaries, unilateral; G47.30 Sleep apnea, unspecified; F32.9 Major depressive disorder, single episode, unspecified; G89.29 Other chronic pain; M54.9 Dorsalgia, unspecified; Z79.4 Long term (current) use of insulin; Z88.7 Allergy status to serum and vaccine; W07.XXXA Fall from chair, initial encounter; Y93.89 Activity, other specified; Y92.89 Other specified places as the place of occurrence of the external cause; Y99.8 Other external cause status

== ENCOUNTER 2018-03-14 11:18 | Inpatient (IN) | payer MEDICAID ==
[~2018-03-14] VITALS: Ht 170.2 cm; Wt 118.8 kg
[2018-03-14 11:25] VITALS: BP 108/67
--- NOTE | 2018-03-14 11:43 | NUR ---
PLEASE SEE TRIAGE NOTE. PATIENT STATES SHE FEELS LIKE SHE IS UNABLE TO TAKE CARE OF HERSELF AT HOME
[2018-03-14 12:02] LABS: ABSOLUTE BASOPHILS 0.2 thou/uL (0.0-0.2); ABSOLUTE EOSINOPHILS 0.1 thou/uL (0.0-0.7); ABSOLUTE LYMPHOCYTES 1.5 thou/uL (0.8-5.3); ABSOLUTE MONOCYTES 0.7 thou/uL (0.0-1.2); ABSOLUTE NEUTROPHILS 11.9 thou/uL (1.6-8.1); BASOPHILS 1.2 %; HEMATOCRIT 33.2 % (37.0-47.0); HEMOGLOBIN 10.9 gm/dL (12.0-15.0); LYMPHOCYTES 10.2 %; MCH 27.3 pg (26.0-34.0); MCV 82.9 fL (80.0-100.0); MONOCYTES 4.8 %; MPV 8.1 fl. (7.2-11.1); NUCLEATED RBCS 0 /100WBC; PLATELET COUNT* 276 thou/uL (150-400); POLYS 82.8 %; WBC 14.4 thou/uL (4.0-11.0)
[2018-03-14 12:08] LABS: CALCIUM 8.6 mg/dL (8.5-10.1); CREATININE 0.9 mg/dL (0.6-1.3); POTASSIUM 3.9 mmol/L (3.5-5.1); PROTIME 10.2 Seconds (9.20-11.50)
--- NOTE | 2018-03-14 12:13 | NUR ---
PATIENT RETURNED FROM RADIOLOGY AWAITING LAB/XRAY RESULTS PATIENT ENCOURAGED TO GIVE URINE SAMPLE BUT UNABLE.
[2018-03-14 12:18] LABS: ALBUMIN 3.2 g/dL (3.4-5.0); TOTAL BILIRUBIN 0.3 mg/dL (<0.1-1.0); TOTAL PROTEIN 6.8 g/dL (6.4-8.2)
[2018-03-14 13:00] LABS: URINE BILIRUBIN NEGATIVE (Negative); URINE BLOOD NEGATIVE (Negative); URINE CLARITY CLEAR; URINE COLOR YELLOW; URINE GLUCOSE-RANDOM 1+ (Negative); URINE KETONES NEGATIVE (Negative); URINE LEUKOCYTES-REFLEX 1+ (Negative); URINE NITRITE-REFLEX NEGATIVE (Negative); URINE PROTEIN NEGATIVE (Negative); URINE UROBILINOGEN 0.2 E.U./dl (0.2-1.0)
[2018-03-14 13:06] LABS: BACTERIA-REFLEX 1-9 Few /HPF (None Seen); CASTS None Seen /LPF (None Seen); CRYSTALS None Seen /LPF (None Seen); SQUAMOUS 4-10 Moderate /LPF (0-3); URINE RBC 0-2 Rare /HPF (0-2); URINE WBC-REFLEX 6-15 Few /HPF (0-5)
[2018-03-14 14:29] VITALS: BP 129/64
[2018-03-14 14:40] VITALS: BP 119/70
--- NOTE | 2018-03-14 16:53 | NUR ---
Pt transferred to [facility] Room 105 at 1435 from ED via wheelchair, transfer X 1-2 assist, pt exhibits weakness in BLE with c/o pain on transfer, admitted for UTI and generalized weakness, pt states, "I cannot walk," Pt under the care of Dr. Saravia, this nurse has messaged for pain medication d/t pt c/o of 9/ back and leg pain, will cont to monitor and provide other pain relief measures available, pt in bed watching television at this time, call light in reach
--- NOTE | 2018-03-14 18:13 | EKG ---
[place] [address] ELECTROCARDIOGRAM REPORT Name: IESHA HERNANDEZ Room: [address] ADM IN .R.#: [id number] Admission: 03/14/18 Attend Phys: Frank Alatorre Discharge: Date of : 57 Report #: [id number] THIS REPORT FOR: //name// [facility] ED Test Date: 2018-03-14 Test Time: 11:56:08 Pat Name: IESHA HERNANDEZ Department: Room: [facility] Gender: F Show Dog Trainer: Haylee MOHAMUD : 1955 Requested By: Olayinka Minaya Order Number: [id number] MD: Varun Narayanan Measurements Intervals [place] Rate: 102 P: 34 [place]: 157 QRS: 6 QRSD: 83 T: 45 QT: 337 QTc: 439 Interpretive Statements Sinus tachycardia Probable left atrial enlargement Abnormal R-wave progression, early transition Compared to ECG 02/22/2018 19:55:17 No significant changes Electronically Signed On 03-14-2018 18:13:00 CDT by Varun Narayanan [email or web address] <ELECTRONICALLY SIGNED> By: Varun Narayanan MD, [facility]ACC 03/14/18 1813 1156 1156 Varun Narayanan MD, FACC /EPI
[2018-03-14 19:30] VITALS: BP 108/54
--- NOTE | 2018-03-15 05:05 | NUR ---
PATIENT ALERT AND ORIENTED X 4. VITALS STABLE. RA. UP TO THE BSC WITHOUT DIFFICULTY. ALTERNATING PEROCET AND NORCO FOR PAIN, EFFECTIVE. PATIENT HAS SLEPT COMFORTABLY THROUGH THE NIGHT. HOURLY ROUNDS. BED ALARM IN USE. NURSING WILL CONTINUE TO MONITOR.
[2018-03-15 07:45] VITALS: BP 105/74
[2018-03-15 10:40] LABS: ABSOLUTE BASOPHILS 0.1 thou/uL (0.0-0.2); ABSOLUTE EOSINOPHILS 0.2 thou/uL (0.0-0.7); ABSOLUTE LYMPHOCYTES 1.9 thou/uL (0.8-5.3); ABSOLUTE MONOCYTES 0.5 thou/uL (0.0-1.2); BASOPHILS 1.1 %; EOSINOPHILS 4.1 %; HEMOGLOBIN 11.3 gm/dL (12.0-15.0); LYMPHOCYTES 33.6 %; MCH 26.9 pg (26.0-34.0); MCHC 32.4 g/dL (28.0-37.0); MCV 82.9 fL (80.0-100.0); MONOCYTES 8.6 %; MPV 8.5 fl. (7.2-11.1); NUCLEATED RBCS 0 /100WBC; PLATELET COUNT* 278 thou/uL (150-400); POLYS 52.6 %; RBC 4.22 mil/uL (4.20-5.00); RDW-CV 16.3 % (10.5-14.5); WBC 5.6 thou/uL (4.0-11.0)
[2018-03-15 10:51] LABS: ALBUMIN 3.1 g/dL (3.4-5.0); CREATININE 0.8 mg/dL (0.6-1.3); POTASSIUM 3.7 mmol/L (3.5-5.1); TOTAL BILIRUBIN 0.2 mg/dL (<0.1-1.0)
--- NOTE | 2018-03-15 12:49 | NUR ---
PT IS ALERT AND ORIENTED X 3. DENIES NAUSEA. PAIN MANAGED WITH PO MEDICATION. INDICATES /10. PARTICIPATED WITH THERAPIES THIS AM. UP TO CHAIR AND AMBULATED TO BR WITH SBA USING WALKER AND GAIT BELT. BED/CHAIR ALARM IN PLACE. PT USING A K-PAD TO BACK AND LEGS BILAT. IV PATENT. PT INDICATED HAS ALREADY HAD FLU VACCINE FOR THIS YEAR. REFUSES TO USE SCDS. VS STABLE. HOURLY ROUNDS MAINTAINED. RE-EDUCATED AT 1230 ABOUT SELF TRANSFERRING FROM CHAIR TO BED WITHOUT STAFF ASSISTANCE. CALL LIGHT WITHIN REACH. NURSING TO CONTINUE TO MONITOR.
--- NOTE | 2018-03-15 13:17 | NUR ---
REPORT CALLED TO FLACO. UP WITH GAIT BELT AND WALKER TO AMBULATE TO BR WITH SBA. INFORMED OF BEING TRANSFERRED TO ANOTHER UNIT TO ROOM 314 LATER THIS AFTERNOON. PT STATED, "OKAY, I'M GOING TO CALL MY DAUGHTER AND LET HER KNOW."
--- NOTE | 2018-03-15 14:29 | NUR ---
@ 1420, PT TRANSFERRED TO ROOM 314 BY BED WITH ALL PERSONAL BELONGINGS.
[2018-03-15 16:05] VITALS: BP 113/55
--- NOTE | 2018-03-15 16:58 | NUR ---
ASSUMED CARE AT 1430. REPORT TAKEN FROM KATHARINE. PATIENT A&OX4, RA, IV LEFT HAND SALINE LOCK. UP WITH ASSISTX1 WITH WALKER AND GIATBELT. C/O PAIN, PARTIAL RELIEF WITH MEDICATION. HEATING PAD AT BEDSIDE FOR FURTHER PAIN RELIEF. NO OTHER CONCERNS AT THIS TIME. APPROPRIATE AND COOPORATIVE WITH CARE.
[2018-03-15 20:15] VITALS: BP 118/62
--- NOTE | 2018-03-16 05:14 | NUR ---
PT SLEPT ON AND OFF THIS SHIFT. ASSESSMENT DOCUMENTED. MEDS GIVEN PER E-JUL. IV PATENT. PAIN MEDS GIVEN PER E-JUL. PT EDUCATED ON DAILY LIMIT OF TYLENOL. PT STATED UNDERSTANDING. K-PAD IN PLACE. PT UP TO BATHROOM THIS SHIFT WITH SBA. WILL CONTINUE WITH PLAN OF CARE.
[2018-03-16 07:45] VITALS: BP 122/59
[2018-03-16] MEDS ORDERED: NORCO 10-325 T1 EACH PO (10:05)
[2018-03-16] MEDS ORDERED: CEFDINIR300 MG PO (10:06)
[2018-03-16 10:11] VITALS: BP 122/59
--- NOTE | 2018-03-16 10:42 | NUR ---
PATIENT A&OX4, RA, IV LEFT HAND SALINE LOCK. IV DISCONTINUED, CATHETER FULLY INTACT. UP WITH STAND BY ASSISTX1 WITH WALKER, STEADY GAIT. C/O PAIN, PARTIAL RELIEF WITH MEDICATION. NO OTHER CONCERNS AT THIS TIME. PATIENT DISCHARGED TODAY, REVIEWED PAPERWORK WHILE FAMILY AT BEDSIDE. VERBALIZES UNDERSTANDING, ALL QUESTIONS AND CONCERNS ANSWERED. PATIENT LEFT UNIT AT 1030 VIA W/C WITH NURSING STAFF AND DAUGHTER. ALL BELONGINGS TAKEN WITH, NOTHING LEFT BEHIND. APPROPRIATE AND COOPORATIVE WITH CARE.
== END 2018-03-16 10:30 | disposition home or self-care (01) | DRG 690 ==
LOC: M.ERS 11:18 → M.TBA-ER 13:05 → M.ORTHSURG 13:05 → M.3W 03-15 14:29
PROVIDERS: Emergency Medicine; ADMIT Internal Medicine
DX: N39.0 Urinary tract infection, site not specified (principal); R65.10 Systemic inflammatory response syndrome (SIRS) of non-infectious origin without acute organ dysfunction; M81.0 Age-related osteoporosis without current pathological fracture; E11.9 Type 2 diabetes mellitus without complications; M25.551 Pain in right hip; I10 Essential (primary) hypertension; E78.00 Pure hypercholesterolemia, unspecified; G89.29 Other chronic pain; M54.9 Dorsalgia, unspecified; F32.9 Major depressive disorder, single episode, unspecified; F41.9 Anxiety disorder, unspecified; Z87.01 Personal history of pneumonia (recurrent); Z86.711 Personal history of pulmonary embolism; Z79.82 Long term (current) use of aspirin; Z79.84 Long term (current) use of oral hypoglycemic drugs; Z88.7 Allergy status to serum and vaccine; Z82.49 Family history of ischemic heart disease and other diseases of the circulatory system; Z90.721 Acquired absence of ovaries, unilateral

== ENCOUNTER 2018-04-16 00:55 | Inpatient (IN) | payer MEDICAID ==
[2018-04-16] VITALS (8 sets, daily range): BP systolic 93–118; BP diastolic 41–72
[~2018-04-16] VITALS: Ht 170.2 cm; Wt 116.9 kg
[~2018-04-16 00:55] MED LIST changes: +CEFDINIR300 MG PO
[2018-04-16 01:19] LABS: BE -1.1 mmol/L (-2 to +3); HCO3 23.7 mmol/L (22.0-26.0); PCO2 39.6 mmHg (35.0-45.0); PO2 60.9 mmHg (75.0-100.0); pH 7.394 (7.340-7.450)
[2018-04-16 01:28] LABS: HEMATOCRIT 38.4 % (37.0-47.0); HEMOGLOBIN 12.4 gm/dL (12.0-15.0); MCHC 32.2 g/dL (28.0-37.0); MCV 83.7 fL (80.0-100.0); MPV 8.5 fl. (7.2-11.1); NUCLEATED RBCS 0 /100WBC; PLATELET COUNT* 276 thou/uL (150-400); RBC 4.58 mil/uL (4.20-5.00); RDW-CV 15.9 % (10.5-14.5); WBC 19.2 thou/uL (4.0-11.0)
[2018-04-16 01:41] LABS: ANION GAP 12 mmol/L (7-16); BUN 14 mg/dL (7-18); CALCIUM 9.4 mg/dL (8.5-10.1); CHLORIDE 97 mmol/L (98-107); CO2 25 mmol/L (21-32); GLUCOSE 283 mg/dL (70-99); POTASSIUM 4.4 mmol/L (3.5-5.1); SODIUM 134 mmol/L (136-145)
[2018-04-16 01:42] LABS: PROTIME 10.3 Seconds (9.20-11.50)
[2018-04-16 01:52] LABS: ALBUMIN 3.7 g/dL (3.4-5.0); ALKALINE PHOSPHATASE 106 U/L (46-116); LIPASE 55 U/L (73-393); NT-PRO BRAIN NAT PEPTIDE 46 pg/mL (<300); SGOT 19 U/L (15-37); SGPT 30 U/L (30-65); TOTAL BILIRUBIN 0.4 mg/dL (<0.1-1.0); TOTAL PROTEIN 7.4 g/dL (6.4-8.2); TROPONIN-I LEVEL <0.06 ng/mL (<0.06)
[2018-04-16 01:59] LABS: URINE BILIRUBIN NEGATIVE (Negative); URINE BLOOD NEGATIVE (Negative); URINE CLARITY CLEAR; URINE COLOR STRAW; URINE GLUCOSE-RANDOM TRACE (Negative); URINE KETONES NEGATIVE (Negative); URINE LEUKOCYTES-REFLEX NEGATIVE (Negative); URINE NITRITE-REFLEX NEGATIVE (Negative); URINE PROTEIN NEGATIVE (Negative); URINE UROBILINOGEN 0.2 E.U./dl (0.2-1.0)
[2018-04-16 03:17] LABS: INFLUENZA A ANTIGEN None Detected (None Detect); INFLUENZA B ANTIGEN None Detected (None Detect)
[2018-04-16 03:36] LABS: ABSOLUTE EOSINOPHILS 0.2 thou/uL (0.0-0.7); ABSOLUTE LYMPHOCYTES 0.8 thou/uL (0.8-5.3); ABSOLUTE MONOCYTES 0.4 thou/uL (0.0-1.2); ABSOLUTE NEUTROPHILS 17.9 thou/uL (1.6-8.1)
[2018-04-16 03:37] LABS: PLATELET ESTIMATE ADEQUATE; POLYCHROMASIA 1+
[2018-04-16 04:48] LABS: BE -0.8 mmol/L (-2 to +3); HCO3 24.4 mmol/L (22.0-26.0); PCO2 42.6 mmHg (35.0-45.0); pH 7.376 (7.340-7.450)
[2018-04-16 04:51] LABS: PO2 134.2 mmHg (75.0-100.0)
--- NOTE | 2018-04-16 07:35 | NUR ---
ASSUMED CARE OF PATIENT AT 0530. ON SEPSIS PROTOCOL. SHE WAS ASLEEP AT CHANGE OF SHIFT. BED IN LOWEST POSTION. CALL LIGHT WITHING REACH. NURSING WILL CONTINUE TO MONITOR.
--- NOTE | 2018-04-16 10:57 | NUR ---
2818 ASSUMED CARE OF PATIENT. PLEASE SEE DOCUMENTED ASSESSMENT. PT IS ASKING FOR PAIN MEDICATION FOR CHRONIC HIP PAIN. DISCUSSED PLAN OF CARE WITH PATIENT. GOALS IDENTIFIED. IV'S INFILTRATED AND RESTARTED
--- NOTE | 2018-04-16 14:27 | EKG ---
[place] [address] ELECTROCARDIOGRAM REPORT Name: IESHA HERNANDEZ Room: [address] ADM IN .R.#: [id number] Admission: 04/16/18 Attend Phys: Susannah Chapa MD Discharge: Date of : 57 Report #: [id number] THIS REPORT FOR: //name// [facility] ED Test Date: 2018-04-16 Test Time: 01:25:44 Pat Name: IESHA HERNANDEZ Department: Room: [facility] Gender: F Timber Skidder: SANDER : 1955 Requested By: Maricel Mazariegos Order Number: [id number] MD: Varun Narayanan Measurements Intervals [place] Rate: 155 P: 14 CO: 254 QRS: 16 QRSD: 103 T: 17 QT: 307 QTc: 493 Interpretive Statements Supraventricular tachycardia Ventricular premature complex Low voltage, precordial leads Minimal ST depression, inferior leads Borderline prolonged QT interval Compared to ECG 03/14/2018 11:56:08 Ventricular premature complex(es) now present rate increased ST (T wave) deviation now present Electronically Signed On 04-16-2018 14:27:01 PLANT TAXONOMY TEACHER by Varun Narayanan [email or web address] <ELECTRONICALLY SIGNED> By: Varun Narayanan MD, FACC 04/16/18 1427 0125 0125 Varun Narayanan MD, FACC /EPI
--- NOTE | 2018-04-16 14:57 | NUR ---
Pt is A&O. Resides at home alone. Pt states that she continues to cook, clean and drive. Pt has a DEMETRIUS caregiver through [facility] that assists as needed. CG is in the home 3hrs/day for 5 days/week. Pt has a walker, cane and wc at home that she can use as needed. No home o2. Goal is home at vt. Following.
--- NOTE | 2018-04-16 17:34 | NUR ---
PATIENT PROGRESSING TOWARDS GOALS. TITRATED TO ROOM AIR BY RT. LUNGS REMAIN DIMINSHED. VSS. AFEBRILE. APPETITE GOOD. UP TO BSC WITH ASSIST OF TWO. LARGE AMOUNT OF OUTPUT. ANXIOUS AT TIMES. DAUGHTER VISITED
[2018-04-16] MEDS ORDERED: KLONOPIN0.5 MG PO (17:58)
--- NOTE | 2018-04-16 18:31 | NUR ---
PATIENT BECAME VERY AGITATED AND SAID SHE WAS CALLING HER DOCTOR BECAUSE SHE IS NOT GETTING ALL OF THE MEDICATIONS SHE REQUIRES. OBTAINED HER CLONAZEPAM AND ADMINISTERED IT. SPOKE TO PATIENT ABOUT RELAXATION TECHNIQUES AND REASSURED HER OF HER PROGRESS. NOW SETTLING DOWN. SINUS TACH UP TO 120'S WHEN AGITATED
[2018-04-17 04:00] VITALS: BP 141/74
[2018-04-17 04:51] LABS: ABSOLUTE BASOPHILS 0.1 thou/uL (0.0-0.2); ABSOLUTE EOSINOPHILS 0.2 thou/uL (0.0-0.7); ABSOLUTE LYMPHOCYTES 1.6 thou/uL (0.8-5.3); ABSOLUTE MONOCYTES 0.6 thou/uL (0.0-1.2); ABSOLUTE NEUTROPHILS 8.6 thou/uL (1.6-8.1); BASOPHILS 0.7 %; EOSINOPHILS 1.7 %; HEMATOCRIT 30.3 % (37.0-47.0); LYMPHOCYTES 14.2 %; MCH 27.4 pg (26.0-34.0); MCHC 32.9 g/dL (28.0-37.0); MCV 83.2 fL (80.0-100.0); MONOCYTES 5.6 %; MPV 8.5 fl. (7.2-11.1); NUCLEATED RBCS 0 /100WBC; POLYS 77.8 %; RBC 3.65 mil/uL (4.20-5.00)
[2018-04-17 05:01] LABS: PLATELET COUNT* 187 thou/uL (150-400)
[2018-04-17 05:09] LABS: ALBUMIN 2.5 g/dL (3.4-5.0); CALCIUM 8.6 mg/dL (8.5-10.1); CREATININE 0.7 mg/dL (0.6-1.3); MAGNESIUM 1.6 mg/dL (1.8-2.4); PHOSPHORUS* 2.5 mg/dL (2.5-4.9); POTASSIUM 3.5 mmol/L (3.5-5.1); TOTAL BILIRUBIN 0.4 mg/dL (<0.1-1.0)
--- NOTE | 2018-04-17 05:21 | NUR ---
ASSUMED PT CARE AT 1930. ASSESSMENT COMPLETED CHARTED. ABLE TO MAKE NEEDS KNOWN. PT HEARD CUSSING OUT LOUD INTO THE HALLWAY NEAR THE BEGINNING OF SHIFT. ENCOURAGED TO STOP USING THAT LANGUAGE THAT LOUD IT IS DISRESPECTFUL. QUICKLY APPOLOGIZED AND SAID THAT SHE WASNT CUSSING ANYONE OUT. PT IS RESTING IN BED AT THIS TIME, PT C/O PAIN AND WANTS PAIN MEDICATION PER P.O. WILL CONTINUE TO MONITOR.
[2018-04-17 07:40] VITALS: BP 131/61
[2018-04-17 12:00] VITALS: BP 109/53
[2018-04-17 16:00] VITALS: BP 119/56
--- NOTE | 2018-04-17 17:48 | NUR ---
PT A&OX4. ON RA AT 93%, O2 NEEDED. VITALS STABLE, BP 131/61, P 99, TEMP 98.0. IV IN L FA, INTACT AND INFUSING. UP WITH 1, MINIMAL ASSIST. AGUILERA REMOVED, HAS URINATED IN CAMMODE SINCE, NO COMPLAINTS. SHEELAIAN ORDERED HS. FAMILY HAS BEEN VISTING DURING SHIFT. FALL PRECAUTIONS IN PLACE. CALL LIGHT WITHIN REACH. WILL CONTINUE TO MONITOR.
[2018-04-17 20:15] VITALS: BP 113/57
[2018-04-18 00:08] VITALS: BP 113/69
[2018-04-18 04:24] VITALS: BP 135/55
--- NOTE | 2018-04-18 04:25 | NUR ---
RECIEVED REPORT AND ASSUMED CARE AT 1900. BP LOW, PULSE TACHY OTHER THAN THAT VITALS STABLE. PT ON RA AND 4L NC PRN IF NEEDED TO KEEP STATS ABOVE 90S. OXYGEN WAS 92%. PT UP WITH STANDBY ASSIST TO COMMODE. ASSESSMENT COMPLETED AND DISCUSSED PLAN OF CARE AND PT UNDERSTANDS. PAIN IN RIGHT HIP AND LOWER BACK AND PRN MEDS GIVEN ORDERED. BED LOCKED AND CALL LIGHT WITHIN REACH. HOURLY ROUNDING DONE AND ALL NEEDS MET. NURSING WILL CONTINUE TO MONITOR.
[2018-04-18 04:50] LABS: HEMATOCRIT 32.5 % (37.0-47.0); HEMOGLOBIN 10.7 gm/dL (12.0-15.0); MCH 27.5 pg (26.0-34.0); MCHC 33.1 g/dL (28.0-37.0); MPV 8.4 fl. (7.2-11.1); RBC 3.91 mil/uL (4.20-5.00); RDW-CV 15.9 % (10.5-14.5); WBC 6.7 thou/uL (4.0-11.0)
[2018-04-18 05:09] LABS: CALCIUM 8.7 mg/dL (8.5-10.1); CREATININE 0.7 mg/dL (0.6-1.3); MAGNESIUM 1.7 mg/dL (1.8-2.4); PHOSPHORUS* 2.9 mg/dL (2.5-4.9); POTASSIUM 3.7 mmol/L (3.5-5.1)
[2018-04-18 08:00] VITALS: BP 132/68
--- NOTE | 2018-04-18 08:00 | NUR ---
AM ASSESSMENT COMPLETE, DEFER TO COMPUTER CHARTING. CARDIAC [place] TRACKING SR TO ST. ALERT OREINTED. DENIES DIZZINESS, SOA AT THIS TIME - REPORTING HAS CHRONIC BACK AND RIGHT HIP DISCOMFORT. LUNGS COARSE/CRACKLES - WHEEZE AT TIME - ROOM AIR O2 SAT 91%. SORES/BLISTERS NOTED ON LIPS - PAINFUL PER PATIENT. IN BED WITH HOB ELEVATED, CALL LIGHT WITHIN REACH. WILL MONITOR.
[2018-04-18 11:57] VITALS: BP 116/67
--- NOTE | 2018-04-18 13:33 | NUR ---
CM spoke with Pt, again, regarding applying for Medicare. CM informed Pt again, that she will need to either call/visit the social security office or apply online at [email or web address]
[2018-04-18 16:09] VITALS: BP 140/67
--- NOTE | 2018-04-18 16:25 | NUR ---
INDEXER TRACKING ST. NO COMPLAINT OF PAIN, DIZZINESS OR ANY DISCOMFORT AT THIS TIME TO NURSING. TOLERATING DIET, IV FLUIDS DC'D PER ORDERS. ANXIOUS ON AND OFF DURING SHIFT, REASSURANCE GIVEN. REPORTING SORES ON MOUTH STARTING TO FEEL BETTER. NO SIGN OF RESPIRATORY DISTRESS. CALL LIGHT WITHIN REACH. WILL CONTINUE WITH PLAN OF CARE.
[2018-04-18 19:40] VITALS: BP 118/90
[2018-04-19] VITALS: BP 142/76
--- NOTE | 2018-04-19 03:06 | NUR ---
RECIEVED REPORT AND ASSUMED CARE AT 1900. VITAL SIGNS STABLE. PT UP WITH STANDBY ASSIST X 1 TRANSFERS TO COMMODE AND BED AND CHAIR. PT C/O LOWER BACK PAIN, RIGHT HIP, AND MOUTH PAIN, PRN PAIN MEDS GIVEN ORDERED. PT ON RA AND HAS PRN OXYGEN IF NEEDED FOR STATS BELOW 90%. ASSESSMENT COMPLETED AND PLAN OF CARE DISCUSSED AND PT UNDERSTANDS. BED LOCKED, ALARM ON AND CALLL LIGHT WITHIN REACH. HOURLY ROUNDING DONE AND ALL NEEDS MET. NURSING WILL CONTINUE TO MONITOR.
[2018-04-19 04:00] VITALS: BP 114/66
[2018-04-19 08:00] VITALS: BP 137/83
--- NOTE | 2018-04-19 09:03 | NUR ---
ASSUMED CARE OF PT AT 0730. PT RESTING IN BED WAITING FOR BREAKFAST. PT A&0X4, COMPLAINS OF PAIN TO HIP, BACK AND MOUTH 10/10. COLD SORES NOTED TO MOUTH, INSIDE AND OUT. PT GIVEN PAIN MEDICATION BY NOC SHIFT. PT TRACING SR ON THE PIPE INSTALLER. ON RA SAT 94%, DENIES ANY SHORTNESS OF BREATH. PT UP SBA TO BATHROOM. PT STATES SHE IS SCARED TO GO HOME TODAY. PT GOAL FOR TODAY IS PAIN MGMT, WORK WITH PT AND OT AND DISCHARGE PLANNING. AM ASSESSMENT CHARTED. MEDICATIONS PER JUL. PT REPOSITIONS SELF WITH REMINDERS. HOURLY ROUNDING OBSERVED. BED IN LOW POSITION. CALL LIGHT WITHIN REACH. WILL CONTINUE PLAN OF CARE.
[2018-04-19 12:11] VITALS: BP 125/85
[2018-04-19 17:18] VITALS: BP 145/82
--- NOTE | 2018-04-19 17:35 | NUR ---
NO ACUTE CHANGES THROUGHOUT SHIFT. REFER TO CHARTING. PT HAD CTA AND CXR TODAY PER DR LAI. REFER TO RESULTS. LIDOCAINE PATCH STARTED FOR HIP/BACK PAIN. HERPES CONTINUE TO MOUTH/ PT STARTED ON ACYCLOVIR. PT NOTED TO HAVE A RASH/ REDNESS TO FACE AND CHEST THIS AFTERNOON. DR LAI NOTIFIED. ORDERS RECEIVED FOR PO PREDNISONE AND IV BENDARYL. REFER TO EMAR. PT CONTINUES TO TRACE SR/ST ON THE JOY OPERATOR. ON RA SAT UPPER 90'S. DENIES ANY SHORTNESS OF BREATH. COMPLAINED OF PAIN TO BACK, HIP AND MOUTH THROUGHOUT SHIFT. TREATED WITH PRN PAIN MEDICATION WITH PARTIAL RELIEF. PT UP TO CHAIR FOR MEALS. VISITORS AT BEDSIDE THIS AFTERNOON. SLOWLY PROGRESSING TOWARDS GOALS. MEDICATIONS PER JUL. PT REPOSISTIONS SELF. HOURLY ROUNDING OBSERVED. BED IN LOW POSITION. CALL LIGHT WITHIN REACH. WILL CONTINUE PLAN OF CARE.
[2018-04-19 20:00] VITALS: BP 144/71
[2018-04-20] VITALS: BP 136/83
[2018-04-20 04:00] VITALS: BP 141/72
--- NOTE | 2018-04-20 04:24 | NUR ---
REVIEVED REPORT AND ASSUMED CARE AT 1900. VITAL SIGNS STABLE. PT UP WITH STAND BY ASSIST. PT ON RA. C/O LOWER BACK PAIN AND MOUTH PAIN AND PAIN MEDS GIVEN ORDERED. ASSESSMENT COMPLETED AND DISCUSSED POC AND PT UNDERSTANDS. BED LOCKED AND CALL LIGHT WITHIN REACH. HOURLY ROUNDING DONE AND ALL NEEDS MET. NURSING WILL CONTINUE TO MONITOR.
[2018-04-20 08:00] VITALS: BP 147/75
--- NOTE | 2018-04-20 09:54 | NUR ---
ASSUMED CARE OF PT AT 0730. PT RESTING IN RECLINER WAITING FOR BREAKFAST. PT A&0X4, COMPLAINS OF PAIN TO BACK, MOUTH AND HIP. TREATED WITH PRN TRAMADOL AND SCHEDULED LIDOCAINE PATCH WITH PARTIAL RELIEF. PT TRACING SR ON THE DIRECTOR OF RESTAURANTS. PT ON RA SAT UPPER 90'S. DENIES ANY SHORTNESS OF BREATH. PT UP SBA TO BATHROOM. HERPES TO MOUTH APPEARS TO BE IMPROVING. PT RECEIVING ACYCLOVIR 5 TIMES PER DAY. PT GOAL FOR TODAY IS PAIN MGMT, INCREASE ACTIVITY, UP TO CHAIR FOR MEALS AND DISCHARGE PLANNING. AM ASSESSMENT CHARTED. MEDICATIONS PER MAR. PT REPOSITIONS SELF. HOURLY ROUNDING OBSERVED. BED IN LOW POSITION. CALL LIGHT WITHIN REACH. WILL CONTINUE PLAN OF CARE.
[2018-04-20 12:00] VITALS: BP 131/60
[2018-04-20 16:00] VITALS: BP 150/73
--- NOTE | 2018-04-20 18:27 | NUR ---
NO ACUTE CHANGES THROUGHOUT SHIFT. REFER TO CHARTING. PT UP TO CHAIR FOR MEALS, PT HAD A SHOWER WITH NURSING STAFF ASSIST. PT PROGRESSING TOWARDS GOALS. CONTINUES TO TRACE SR/ST ON THE TRADES HELPER. ON RA SAT UPPER 90'S. DENIES ANY SHORTNESS OF BREATH. COMPLAINS OF PAIN TO BACK AND HIPS, TREATED WITH PRN PAIN MEDICATION AND SCHEDULED LIDOCAINE PATCH WITH PARTIAL RELIEF. PROBABLE DISCHARGE HOME TOMORROW 04/21. MEDICATIONS PER JUL. PT REPOSITIONS SELF. HOURLY ROUNDING OBSERVED. BED IN LOW POSITION. CALL LIGHT WITHIN REACH. WILL CONTINUE PLAN OF CARE.
[2018-04-20 19:53] VITALS: BP 135/82
[2018-04-21 00:23] VITALS: BP 132/61
--- NOTE | 2018-04-21 00:37 | NUR ---
RECEIVED REPORT AND ASSUMED CARE AT 1900. VSS. CARDIAC MONITORING IN PLACE. PT REPORTED PAIN, ADMIN PRN MEDICATION PER ORDERS. ASSESSMENT COMPLETED CHARTED. DISCUSSED PLAN OF CARE WITH PT, VERBALIZED UNDERSTANDING. MEDICATION ADMIN PER EMAR. PT UP WITH ASSIST TO BSC, ON RA. BED LOCKED IN LOWEST POSITION, CALL LIGHT WITHIN REACH. WILL CONTINUE TO MONITOR.
[2018-04-21 04:55] VITALS: BP 130/67
[2018-04-21 09:27] LABS: HEMATOCRIT 35.8 % (37.0-47.0); HEMOGLOBIN 11.7 gm/dL (12.0-15.0); MCH 27.1 pg (26.0-34.0); MCHC 32.6 g/dL (28.0-37.0); MCV 83.2 fL (80.0-100.0); MPV 7.8 fl. (7.2-11.1); RBC 4.3 mil/uL (4.20-5.00); RDW-CV 15.6 % (10.5-14.5); WBC 6.9 thou/uL (4.0-11.0)
[2018-04-21 09:54] LABS: CALCIUM 9.6 mg/dL (8.5-10.1); CREATININE 0.7 mg/dL (0.6-1.3)
[2018-04-21] MEDS ORDERED: DIFLUCAN200 MG PO (10:33)
[2018-04-21] MEDS ORDERED: PREDNISONE 10 M10 MG PO (10:34)
[2018-04-21] MEDS ORDERED: LEVAQUIN 750 M750 MG PO (10:36)
[2018-04-21] MEDS ORDERED: ACYCLOVIR 400400 MG PO (10:37)
[2018-04-21 11:21] VITALS: BP 130/67
[2018-04-21] MEDS ORDERED: COLACE100 MG PO (11:42)
--- NOTE | 2018-04-21 12:09 | NUR ---
Nutrition: Pt assessed for high BMI. Wt fluctuating 243 to 267#. Currently 257#. Eating 95-100% of CHO controlled diet. H/o GERD, DM, HTN. Labs: BG 216, alb 2.5, prealb 15.1. Admitediwth sepsis 2/2 aspiration PNA. No nutrition interventions needed at this time.
== END 2018-04-21 13:32 | disposition home or self-care (01) | DRG 871 ==
LOC: M.ERS 00:55 → M.2W 03:42 → M.TBA-ER 03:42 → M.2W 04:12
PROVIDERS: Emergency Medicine; ADMIT Internal Medicine
DX: A41.9 Sepsis, unspecified organism (principal); J69.0 Pneumonitis due to inhalation of food and vomit; E11.9 Type 2 diabetes mellitus without complications; I10 Essential (primary) hypertension; E78.00 Pure hypercholesterolemia, unspecified; G47.00 Insomnia, unspecified; K21.9 Gastro-esophageal reflux disease without esophagitis; B00.1 Herpesviral vesicular dermatitis; F32.9 Major depressive disorder, single episode, unspecified; F41.9 Anxiety disorder, unspecified; G89.29 Other chronic pain; M54.9 Dorsalgia, unspecified; Z86.711 Personal history of pulmonary embolism; Z88.7 Allergy status to serum and vaccine; Z88.8 Allergy status to other drugs, medicaments and biological substances; Z82.49 Family history of ischemic heart disease and other diseases of the circulatory system; Z87.81 Personal history of (healed) traumatic fracture; Z79.899 Other long term (current) drug therapy

== ENCOUNTER 2018-05-07 19:55 | Emergency (ER) | payer MEDICAID ==
[~2018-05-07] VITALS: Ht 170.2 cm; Wt 116.6 kg
[~2018-05-07 19:55] MED LIST changes: +COLACE100 MG PO; +KLONOPIN0.5 MG PO; +PREDNISONE 10 M10 MG PO
[2018-05-07] MEDS ORDERED: PREDNISONE 10 M10 M1 PO (20:55)
[2018-05-07] MEDS ORDERED: NORFLEX100 MG PO (20:55)
[2018-05-07 21:06] VITALS: BP 000/000
== END 2018-05-07 21:09 | disposition home or self-care (01) ==
LOC: M.ERS 19:55
DX: M25.551 Pain in right hip (principal); G89.29 Other chronic pain; I10 Essential (primary) hypertension; E11.9 Type 2 diabetes mellitus without complications; E78.5 Hyperlipidemia, unspecified; G47.00 Insomnia, unspecified; G47.30 Sleep apnea, unspecified; F32.9 Major depressive disorder, single episode, unspecified; F41.9 Anxiety disorder, unspecified; M54.9 Dorsalgia, unspecified; M16.11 Unilateral primary osteoarthritis, right hip; Z79.4 Long term (current) use of insulin; Z88.7 Allergy status to serum and vaccine; Z88.8 Allergy status to other drugs, medicaments and biological substances

== ENCOUNTER → 2018-05-16 | Outpatient (CLI) | payer MEDICAID ==
[~2018-05-16] MED LIST changes: +NORFLEX100 MG PO; +PREDNISONE 10 M10 M1 PO
[2018-05-16 15:40] LABS: HEMOGLOBIN 13.2 gm/dL (12.0-15.0); MCH 27.3 pg (26.0-34.0); MCV 82.8 fL (80.0-100.0); MPV 8.2 fl. (7.2-11.1); RBC 4.83 mil/uL (4.20-5.00); RDW-CV 15.7 % (10.5-14.5); WBC 8.5 thou/uL (4.0-11.0)
[2018-05-16 15:48] LABS: CREATININE 0.8 mg/dL (0.6-1.3); POTASSIUM 4.1 mmol/L (3.5-5.1)
== END ==
LOC: M.LAB 15:18
PROVIDERS: Orthopaedic Surgery
DX: M16.11 Unilateral primary osteoarthritis, right hip (principal)

== ENCOUNTER 2018-05-24 01:26 | Emergency (ER) | payer MEDICAID ==
[~2018-05-24] VITALS: Ht 170.2 cm; Wt 111.6 kg
[2018-05-24 02:26] LABS: BE 2.5 mmol/L (-2 to +3); HCO3 27.8 mmol/L (22.0-26.0); PCO2 45.8 mmHg (35.0-45.0); PO2 65.3 mmHg (75.0-100.0); pH 7.401 (7.340-7.450)
[2018-05-24 02:35] LABS: URINE BILIRUBIN NEGATIVE (Negative); URINE BLOOD NEGATIVE (Negative); URINE CLARITY CLEAR; URINE COLOR YELLOW; URINE GLUCOSE-RANDOM NEGATIVE (Negative); URINE KETONES NEGATIVE (Negative); URINE LEUKOCYTES-REFLEX NEGATIVE (Negative); URINE NITRITE-REFLEX NEGATIVE (Negative); URINE PROTEIN NEGATIVE (Negative); URINE SPECIFIC GRAVITY >= 1.030 (1.005-1.030); URINE UROBILINOGEN 0.2 E.U./dl (0.2-1.0)
[2018-05-24 02:49] LABS: ABSOLUTE BASOPHILS 0.1 thou/uL (0.0-0.2); ABSOLUTE EOSINOPHILS 0.2 thou/uL (0.0-0.7); ABSOLUTE LYMPHOCYTES 1.8 thou/uL (0.8-5.3); ABSOLUTE MONOCYTES 0.9 thou/uL (0.0-1.2); EOSINOPHILS 1.7 %; HEMATOCRIT 34.3 % (37.0-47.0); HEMOGLOBIN 11.4 gm/dL (12.0-15.0); LYMPHOCYTES 16.4 %; MCH 27.3 pg (26.0-34.0); MCHC 33.4 g/dL (28.0-37.0); MCV 81.8 fL (80.0-100.0); MONOCYTES 8.1 %; MPV 7.9 fl. (7.2-11.1); NUCLEATED RBCS 0 /100WBC; PLATELET COUNT* 309 thou/uL (150-400); POLYS 72.8 %; RBC 4.19 mil/uL (4.20-5.00); RDW-CV 15.6 % (10.5-14.5)
[2018-05-24 02:59] LABS: CALCIUM 9.7 mg/dL (8.5-10.1); CREATININE 0.8 mg/dL (0.6-1.3); POTASSIUM 3.6 mmol/L (3.5-5.1)
[2018-05-24 03:04] LABS: ALBUMIN 3.6 g/dL (3.4-5.0); TOTAL BILIRUBIN 0.2 mg/dL (<0.1-1.0); TOTAL PROTEIN 7.3 g/dL (6.4-8.2)
[2018-05-24 03:32] VITALS: BP 143/81
== END 2018-05-24 03:32 | disposition home or self-care (01) ==
LOC: M.ERS 01:26
PROVIDERS: Personal Emergency Response Attendant
DX: Z71.1 Person with feared health complaint in whom no diagnosis is made (principal); E11.9 Type 2 diabetes mellitus without complications; I10 Essential (primary) hypertension; E78.5 Hyperlipidemia, unspecified; G47.30 Sleep apnea, unspecified; F32.9 Major depressive disorder, single episode, unspecified; F41.9 Anxiety disorder, unspecified; G89.29 Other chronic pain; M54.9 Dorsalgia, unspecified; Z86.711 Personal history of pulmonary embolism; Z87.01 Personal history of pneumonia (recurrent); Z88.7 Allergy status to serum and vaccine; Z88.8 Allergy status to other drugs, medicaments and biological substances

== ENCOUNTER 2018-06-15 13:59 | Emergency (ER) | payer MEDICAID ==
[~2018-06-15] VITALS: Ht 170.2 cm; Wt 108.4 kg
[2018-06-15 15:11] LABS: ABSOLUTE BASOPHILS 0.1 thou/uL (0.0-0.2); ABSOLUTE EOSINOPHILS 0.2 thou/uL (0.0-0.7); ABSOLUTE LYMPHOCYTES 1.8 thou/uL (0.8-5.3); ABSOLUTE MONOCYTES 0.7 thou/uL (0.0-1.2); ABSOLUTE NEUTROPHILS 9.3 thou/uL (1.6-8.1); BASOPHILS 0.8 %; EOSINOPHILS 1.6 %; HEMATOCRIT 33.6 % (37.0-47.0); LYMPHOCYTES 15.1 %; MCHC 32.7 g/dL (28.0-37.0); MCV 82.4 fL (80.0-100.0); MPV 7.6 fl. (7.2-11.1); NUCLEATED RBCS 0 /100WBC; PLATELET COUNT* 330 thou/uL (150-400); POLYS 76.5 %; RBC 4.07 mil/uL (4.20-5.00); RDW-CV 15.5 % (10.5-14.5); WBC 12.1 thou/uL (4.0-11.0)
[2018-06-15 15:23] LABS: CALCIUM 8.8 mg/dL (8.5-10.1); CREATININE 0.9 mg/dL (0.6-1.3); POTASSIUM 3.3 mmol/L (3.5-5.1)
[2018-06-15 15:28] LABS: ALBUMIN 3.3 g/dL (3.4-5.0); TOTAL BILIRUBIN 0.1 mg/dL (<0.1-1.0)
[2018-06-15] MEDS ORDERED: ZPAK PO (15:37)
[2018-06-15] MEDS ORDERED: PROAIR HFA8.5 GM INH (15:37)
[2018-06-15 15:49] VITALS: BP 148/60
== END 2018-06-15 15:50 | disposition home or self-care (01) ==
LOC: M.ERS 13:59
PROVIDERS: Physician Assistant
DX: J20.9 Acute bronchitis, unspecified (principal); E11.9 Type 2 diabetes mellitus without complications; I10 Essential (primary) hypertension; E78.5 Hyperlipidemia, unspecified; G47.00 Insomnia, unspecified; G47.30 Sleep apnea, unspecified; F32.9 Major depressive disorder, single episode, unspecified; F41.9 Anxiety disorder, unspecified; M54.9 Dorsalgia, unspecified; G89.29 Other chronic pain; Z87.01 Personal history of pneumonia (recurrent); Z88.8 Allergy status to other drugs, medicaments and biological substances; Z88.7 Allergy status to serum and vaccine

== ENCOUNTER 2018-08-01 11:51 | Inpatient (IN) | payer MEDICAID ==
[~2018-08-01] VITALS: Ht 170.2 cm; Wt 111.6 kg
[~2018-08-01 11:51] MED LIST changes: +PROAIR HFA8.5 GM INH; +ZPAK PO
[2018-08-01 11:52] VITALS: BP 129/66
[2018-08-01 12:31] LABS: HEMATOCRIT 36.1 % (37.0-47.0); HEMOGLOBIN 11.8 gm/dL (12.0-15.0); MCH 26.9 pg (26.0-34.0); MCHC 32.6 g/dL (28.0-37.0); MCV 82.6 fL (80.0-100.0); NUCLEATED RBCS 0 /100WBC; PLATELET COUNT* 295 thou/uL (150-400); RBC 4.38 mil/uL (4.20-5.00); RDW-CV 16.8 % (10.5-14.5)
[2018-08-01 12:47] LABS: ANION GAP 8 mmol/L (7-16); BUN 18 mg/dL (7-18); CALCIUM 9.4 mg/dL (8.5-10.1); CHLORIDE 99 mmol/L (98-107); CO2 28 mmol/L (21-32); CREATININE 1.2 mg/dL (0.6-1.3); GLUCOSE 175 mg/dL (70-99); POTASSIUM 4.1 mmol/L (3.5-5.1); SODIUM 135 mmol/L (136-145); TROPONIN-I LEVEL <0.06 ng/mL (<0.06)
[2018-08-01 12:51] LABS: ACETAMINOPHEN < 2 ug/mL (10-30); ALBUMIN 3.8 g/dL (3.4-5.0); ALCOHOL < 10 mg/dL (<10); ALKALINE PHOSPHATASE 96 U/L (46-116); NT-PRO BRAIN NAT PEPTIDE 53 pg/mL (<300); SALICYLATE < 2.8 mg/dL (2.8-20.0); SGOT 15 U/L (15-37); SGPT 24 U/L (30-65); TOTAL BILIRUBIN 0.3 mg/dL (<0.1-1.0); TOTAL PROTEIN 7.6 g/dL (6.4-8.2)
[2018-08-01 13:15] LABS: ABSOLUTE BASOPHILS 0.2 thou/uL (0.0-0.2); ABSOLUTE EOSINOPHILS 0.3 thou/uL (0.0-0.7); ABSOLUTE LYMPHOCYTES 1.1 thou/uL (0.8-5.3); ABSOLUTE MONOCYTES 0.5 thou/uL (0.0-1.2); ABSOLUTE NEUTROPHILS 13.1 thou/uL (1.6-8.1); PLATELET ESTIMATE ADEQUATE
[2018-08-01 13:16] LABS: HYPOCHROMASIA 1+; MICROCYTES 2+
[2018-08-01 13:23] LABS: URINE BILIRUBIN NEGATIVE (Negative); URINE BLOOD NEGATIVE (Negative); URINE CLARITY CLEAR; URINE COLOR YELLOW; URINE GLUCOSE-RANDOM NEGATIVE (Negative); URINE KETONES NEGATIVE (Negative); URINE LEUKOCYTES-REFLEX NEGATIVE (Negative); URINE NITRITE-REFLEX NEGATIVE (Negative); URINE PROTEIN NEGATIVE (Negative); URINE SPECIFIC GRAVITY >= 1.030 (1.005-1.030); URINE UROBILINOGEN 0.2 E.U./dl (0.2-1.0)
[2018-08-01 13:35] LABS: AMP/METHAMP Negative (Negative); BARBITURATES Negative (Negative); BENZODIAZEPINES Negative (Negative); COCAINE Negative (Negative); METHADONE Negative (Negative); OPIATES POSITIVE (Negative); PCP Negative (Negative); THC Negative (Negative)
[2018-08-01 14:50] LABS: BE -0.8 mmol/L (-2 to +3); PO2 62.1 mmHg (75.0-100.0); pH 7.366 (7.340-7.450)
[2018-08-01 17:38] VITALS: BP 132/73
[2018-08-01 17:46] VITALS: BP 111/69
[2018-08-02] VITALS: BP 135/63
[2018-08-02 04:47] LABS: HEMATOCRIT 31.7 % (37.0-47.0); HEMOGLOBIN 10.4 gm/dL (12.0-15.0); MCH 27.1 pg (26.0-34.0); MCHC 32.8 g/dL (28.0-37.0); MCV 82.7 fL (80.0-100.0); MPV 8.5 fl. (7.2-11.1); RBC 3.83 mil/uL (4.20-5.00); RDW-CV 16.5 % (10.5-14.5); WBC 9.4 thou/uL (4.0-11.0)
[2018-08-02 05:11] LABS: CALCIUM 8.9 mg/dL (8.5-10.1); CREATININE 0.7 mg/dL (0.6-1.3); MAGNESIUM 1.9 mg/dL (1.8-2.4); POTASSIUM 3.2 mmol/L (3.5-5.1); TOTAL BILIRUBIN 0.4 mg/dL (<0.1-1.0); TOTAL PROTEIN 6.3 g/dL (6.4-8.2)
[2018-08-02 07:40] VITALS: BP 150/65
[2018-08-02 15:30] VITALS: BP 142/77
[2018-08-02] MEDS ORDERED: NEURONTIN 300300 M1 PO (18:44)
[2018-08-03 01:13] VITALS: BP 130/71
[2018-08-03 07:50] VITALS: BP 130/53
[2018-08-03 13:46] VITALS: BP 130/53
--- NOTE | 2018-08-03 14:58 | EKG ---
[place] [address] ELECTROCARDIOGRAM REPORT Name: IESHA HERNANDEZ Room: [address] DIS IN M.R.#: [id number] Admission: 08/01/18 Attend Phys: Susannah Chapa MD Discharge: 08/03/18 Date of : 57 Report #: [id number] THIS REPORT FOR: //name// [facility] ED Test Date: 2018-08-01 Test Time: 12:25:45 Pat Name: IESHA HERNANDEZ Department: Room: [facility] Gender: F Floral Arranger: Brittnee LYNN : 1955 Requested By: Tamiko Daley Order Number: [id number] MD: Carlos Pena Measurements Intervals [place] Rate: 105 P: 42 VT: 163 QRS: 13 QRSD: 89 T: 48 QT: 330 QTc: 437 Interpretive Statements Sinus tachycardia Abnormal R-wave progression, early transition Compared to ECG 04/16/2018 01:25:44 Supraventricular tachycardia no longer present Ventricular premature complex(es) no longer present ST (T wave) deviation no longer present Electronically Signed On 08-03-2018 14:58:30 CDT by Carlos Pena [email or web address] <ELECTRONICALLY SIGNED> By: Carlos Pena MD, FACC 08/03/18 1458 1225 1225 Carlos Pena MD, FACC /EPI
== END 2018-08-03 14:30 | disposition home health service (06) | DRG 948 ==
LOC: M.ERS 11:51 → M.TBA-ER 14:41 → M.3W 17:16
PROVIDERS: Nurse Practitioner Family; ADMIT Internal Medicine
DX: R41.82 Altered mental status, unspecified (principal); E11.9 Type 2 diabetes mellitus without complications; I10 Essential (primary) hypertension; E78.5 Hyperlipidemia, unspecified; G89.29 Other chronic pain; M54.9 Dorsalgia, unspecified; G47.33 Obstructive sleep apnea (adult) (pediatric); M16.11 Unilateral primary osteoarthritis, right hip; G47.00 Insomnia, unspecified; F32.9 Major depressive disorder, single episode, unspecified; F41.9 Anxiety disorder, unspecified; Z86.711 Personal history of pulmonary embolism; Z87.01 Personal history of pneumonia (recurrent); Z98.84 Bariatric surgery status; Z87.81 Personal history of (healed) traumatic fracture; Z79.4 Long term (current) use of insulin; Z79.82 Long term (current) use of aspirin; Z79.899 Other long term (current) drug therapy; Z88.7 Allergy status to serum and vaccine; Z88.8 Allergy status to other drugs, medicaments and biological substances; Z82.49 Family history of ischemic heart disease and other diseases of the circulatory system

== ENCOUNTER 2018-12-17 10:24 | Emergency (ER) | payer MEDICAID ==
[~2018-12-17] VITALS: Ht 170.2 cm; Wt 111.1 kg
[~2018-12-17 10:24] MED LIST changes: +NEURONTIN 300300 M1 PO
[2018-12-17 11:49] VITALS: BP 155/77
== END 2018-12-17 11:49 | disposition home or self-care (01) ==
LOC: M.ERS 10:24
DX: S93.601A Unspecified sprain of right foot, initial encounter (principal); I10 Essential (primary) hypertension; E11.9 Type 2 diabetes mellitus without complications; E78.5 Hyperlipidemia, unspecified; G89.29 Other chronic pain; G47.30 Sleep apnea, unspecified; F41.9 Anxiety disorder, unspecified; F32.9 Major depressive disorder, single episode, unspecified; Z79.4 Long term (current) use of insulin; Z86.711 Personal history of pulmonary embolism; Z96.641 Presence of right artificial hip joint; Z79.899 Other long term (current) drug therapy; W18.40XA Slipping, tripping and stumbling without falling, unspecified, initial encounter; Y93.89 Activity, other specified; Y92.89 Other specified places as the place of occurrence of the external cause; Y99.8 Other external cause status

== ENCOUNTER 2019-02-10 04:50 | Inpatient (IN) | payer MEDICAID ==
[~2019-02-10] VITALS: Ht 170.2 cm; Wt 127.7 kg
--- NOTE | ~2019-02-10 | CON ---
[facility] [address] [place] [address] CONSULTATION Name: IESHA HERNANDEZ Room: [address] IN .R.#: [id number] Admission: 02/10/19 Attend Phys: Ron Gomez MD Discharge: Date of : 57 Report #: [id number] THIS REPORT FOR: //name// CC: Bro Alaniz DO Ron Gomez DICTATED BY: Lora Jara [facility] DATE OF SERVICE: 02/12/2019 Please note, at the time of this dictation, the patient was seen and physically examined by myself. REASON FOR CONSULTATION: Anemia. HISTORY OF PRESENT ILLNESS: This is a 63-year-old female who presented to the Emergency Room via EMS with increased shortness of air, recurrent aspiration pneumonia, and coughing. The patient states that she has had ongoing issues with acid reflux, worsening and waking her at night with coughing and a bad taste in her mouth. She currently takes Protonix 40 mg b.i.d., but still has breakthrough with that. The patient was seen by us back in 11/2015. She had grade C esophagitis at that time with an irregular Z-line. She was informed to follow up in 2 months, which she never did. The patient tells me that she did have a colonoscopy about 5 years ago and she had colon polyps and she is due to have another one again. She has not had any other scopes done since that time. When she has had her procedures done, they have been at [facility]. The patient did have a gastric sleeve back in 2013. Her PCP had started her on iron supplementation oral to help with her anemia, but she was intolerable to taking the iron. Most likely, the patient will need to have an iron infusion if that is such, if she needs that. The patient denies any nausea, vomiting, abdominal pain. She states her bowels move daily, soft and formed. She does not need anything for them. She drinks a coffee in the morning and that helps her bowels move. She does take chronic narcotics, which her pain management doctor is cutting back on her, which she has numerous complaints of pain. ALLERGIES: INCLUDE TETANUS, SILVER, ELIQUIS, AND STATINS. MEDICATIONS: From home include pantoprazole, Norvasc, aspirin, Ambien, Klonopin, Corinna, Lexapro, Glucophage, and Neurontin. PAST MEDICAL HISTORY: Diabetes, hypertension, hyperlipidemia, insomnia, sleep apnea, has used CPAP in the past, history of a PE, recurrent pneumonia, depression and anxiety. PAST SURGICAL HISTORY: Gastric sleeve, tubal , [place] [address] CONSULTATION Name: IESHA HERNANDEZ Room: [address] IN M.R.#: [id number] Admission: 02/10/19 Attend Phys: Ron Gomez MD Discharge: Date of : 57 Report #: [id number] She has had a stem cell injection. FAMILY HISTORY: Negative for any GI or female cancers. SOCIAL HISTORY: Denies any alcohol, tobacco, or illegal drug use. REVIEW OF SYSTEMS: Twelve-point review of systems is essentially negative except what is mentioned in the HPI. PHYSICAL EXAMINATION: VITAL SIGNS: Temperature 36.6, pulse 69, respirations 17, blood pressure 145/85. HEART: Regular rate and rhythm. LUNGS: Diminished with some crackles in the bases. ABDOMEN: Soft, positive bowel sounds in all 4 quadrants with no masses or tenderness noted. LABORATORY DATA: Hemoglobin on admission was 9.9, white count is 8.7, platelets 251. GFR is 85, MCV is 75.4, BUN and creatinine are normal. Iron is 155. Ferritin 26, TIBC 297. B12 is 361 and percentage sat of her iron is 52. The patient had a CTA that confirmed she had bilateral pneumonia. IMPRESSION: 1. Anemia. 2. Gastroesophageal reflux disease, worsening despite appropriate treatment. 3. History of colon polyps. 4. Shortness of air. 5. Pneumonia. 6. Chronic pain. PLAN: 1. EGD: Tomorrow with Dr. Rivera. 2. Obtain records from [facility] for any upper and lower endoscopies with path. 3. We will hold her aspirin. 4. Further recommendations to be made after the procedure has been performed. Thank you for allowing us to participate in this patient's care. Please do not hesitate to call with any questions in regard to this consult. By: [id number] Perry MD /nt
[2019-02-10 05:27] LABS: HEMATOCRIT 29.9 % (37.0-47.0); HEMOGLOBIN 9.4 gm/dL (12.0-15.0); MCH 23.8 pg (26.0-34.0); MCHC 31.5 g/dL (28.0-37.0); MCV 75.4 fL (80.0-100.0); MPV 7.6 fl. (7.2-11.1); NUCLEATED RBCS 0 /100WBC; PLATELET COUNT* 300 thou/uL (150-400); RBC 3.97 mil/uL (4.20-5.00); RDW-CV 22.1 % (10.5-14.5); WBC 13.8 thou/uL (4.0-11.0)
[2019-02-10 05:48] LABS: ANION GAP 12 mmol/L (7-16); BUN 14 mg/dL (7-18); CALCIUM 8.9 mg/dL (8.5-10.1); CHLORIDE 97 mmol/L (98-107); CO2 25 mmol/L (21-32); CREATININE 0.9 mg/dL (0.6-1.3); GLUCOSE 260 mg/dL (70-99); POTASSIUM 3.6 mmol/L (3.5-5.1); SODIUM 134 mmol/L (136-145)
--- NOTE | 2019-02-10 05:51 | NUR ---
PT APON ARRIVAL WAS UNCOOPERATIVE, TWISTING AND TURNING, CRYING OUT; UNABLE TO SIT FOR IV PLACEMENT, EKG AND BP; ON INITIAL ASSESSMENT UNABLE TO OBTAIN BP; ATTEMPTING TO MONITOR BP AGAIN; MONITOR CURRENTLY TRACING 101; WILL CONTINUE TO MONITOR CLOSELY.
[2019-02-10 06:01] LABS: PROTIME 10.7 Seconds (9.20-11.50)
[2019-02-10 06:05] LABS: ALBUMIN 3.3 g/dL (3.4-5.0); ALKALINE PHOSPHATASE 100 U/L (46-116); NT-PRO BRAIN NAT PEPTIDE 137 pg/mL (<300); SGOT 16 U/L (15-37); SGPT 26 U/L (30-65); TOTAL BILIRUBIN 0.3 mg/dL (<0.1-1.0); TROPONIN-I LEVEL <0.06 ng/mL (<0.06)
[2019-02-10 06:41] LABS: INFLUENZA A ANTIGEN Negative (Negative); INFLUENZA B ANTIGEN Negative (Negative)
[2019-02-10 06:44] LABS: ABSOLUTE LYMPHOCYTES 0.6 thou/uL (0.8-5.3); ABSOLUTE NEUTROPHILS 13.2 thou/uL (1.6-8.1); ANISOCYTOSIS 1+; HYPOCHROMASIA 1+
[2019-02-10 07:28] LABS: BE 1.8 mmol/L (-2 to +3); PCO2 46.1 mmHg (35.0-45.0); PO2 61.5 mmHg (75.0-100.0); pH 7.388 (7.340-7.450)
[2019-02-10 08:18] VITALS: BP 120/60
--- NOTE | 2019-02-10 08:50 | NUR ---
ER ADMIT TO 230 TELEPHONE REPORT GIVEN PRIOR TO ARRIVAL PATIENT TO VIA CART ASSISTED TO BED ORIENTED TO AND CALL LIGHT DENIES PAIN
--- NOTE | 2019-02-10 08:56 | NUR ---
NELLY SHAH NOTIFIED THAT PT IV INFILTRATED AND ANOTHER IV WAS NOT ABLE TO BE PLACED DUE TO PT MOVING DURING ATTEMPTS.
[2019-02-10 09:00] VITALS: BP 112/61
--- NOTE | 2019-02-10 09:30 | NUR ---
PATIENT ASKING ABOUT A BOX WITH MEDICATIONS IN THEM STATES SHE HAD THEM IN THE ER NURSE TOLD PATIENT THAT SHE WOULD CALL THE ER TO CHECK PATIENT ALSO STATES DHE HAD TO PRESCRIPTION BOTTLES IN HER PURSE 1 HAD NORCO AND THE OTHER HAD AN ANTIBIOTIC ALSO STATES SHE CANNOT FIND HER CELL PHONE READING INTERVENTIONIST NURSE TO CALL ER TO CHECK ON ITEMS
--- NOTE | 2019-02-10 10:05 | NUR ---
PT REPORTING THAT SHE HAD A "BOX OF MEDICATIONS" AND "PHONE BATCHER OPERATOR" WITH HER WHEN SHE CAME TO THE ED. PT WAS BROUGHT IN VIA EMS THEY WERE CONTACTED AND THEY STATED THOSE ITEMS WERE NOT BROUGHT TO THE ED AND THEY WERE LEFT AT THE HOUSE. PT ALSO REPORTING TO INPATIENT PABLO VILLEGAS THAT THERE WERE 2 BOTTLES OF MEDICATIONS IN HER PURSE. THE ONLY ITEMS THEY WERE VISUALIZED BY ED STAFF WERE A WALLET, PHONE, AND PURSE.
--- NOTE | 2019-02-10 10:15 | NUR ---
CALL MADE TO ER AND SPOKE WITH MONICA ADMITTING ER NURSE MONICA STATES DHE NEVER SAW THESE ITEMS AND WILL CHECK THE ER AND CALL [facility] TRANSPORT AND CALL ME JESSICA WARREN
--- NOTE | 2019-02-10 10:34 | NUR ---
CONSULTED FOR DIFFICULT IV START. 3 ATTEMPTS AT PIV MADE ALL UNABLE TO THREAD. ALL ATTEMPTS WITH ULTRASOUND GUIDANCE. CALL PLACED TO ARIE IN PRE OP AND SHE AGREED TO TRY PIV. PRIMARY RN AWARE.
[2019-02-10] MEDS ORDERED: NORCO 10-325 T1 EACH PO (10:41)
--- NOTE | 2019-02-10 11:00 | NUR ---
MONICA IN ER CALLED BACK AND SAID SHE HAD CALLED AND SPOKE TO [facility] THAT TRANSPORTED PATIENT TO HOSPITAL SHE WAS TOLD THAT PATIENT PROIR TO TRANSPORT COULD NOT LOCATE HER BOX OF MEDICATIONS OR CELL PHONE COMPOSITION ROOFER AT HOME PATIENT NOTIFIED OF THESE FINDINGS BY [facility]
[2019-02-10 11:35] VITALS: BP 106/51
[2019-02-10 13:30] LABS: URINE BILIRUBIN NEGATIVE (Negative); URINE BLOOD NEGATIVE (Negative); URINE CLARITY CLEAR; URINE COLOR YELLOW; URINE GLUCOSE-RANDOM 3+ (Negative); URINE KETONES NEGATIVE (Negative); URINE LEUKOCYTES-REFLEX NEGATIVE (Negative); URINE NITRITE-REFLEX NEGATIVE (Negative); URINE PROTEIN NEGATIVE (Negative); URINE UROBILINOGEN 0.2 E.U./dl (0.2-1.0)
[2019-02-10 13:38] LABS: AMP/METHAMP Negative (Negative); BARBITURATES Negative (Negative); BENZODIAZEPINES Negative (Negative); COCAINE Negative (Negative); METHADONE Negative (Negative); OPIATES POSITIVE (Negative); PCP Negative (Negative); THC Negative (Negative)
[2019-02-10 16:00] VITALS: BP 121/64
--- NOTE | 2019-02-10 17:21 | EKG ---
[place] [address] ELECTROCARDIOGRAM REPORT Name: IESHA HERNANDEZ Room: [address] ADM IN .R.#: [id number] Admission: 02/10/19 Attend Phys: Ron Gomez MD Discharge: Date of : 57 Report #: [id number] THIS REPORT FOR: //name// [facility] ED Test Date: 2019-02-10 Test Time: 04:58:57 Pat Name: IESHA CARRANZAELSON Department: Room: [facility] Gender: F Leaflet Or Newspaper Deliverer: : 1955 Requested By: Maricel Mazariegos Order Number: [id number] MD: Carlos Pena Measurements Intervals [place] Rate: 135 P: -3 MA: 138 QRS: 11 QRSD: 80 T: 51 QT: 286 QTc: 429 Interpretive Statements Sinus tachycardia Compared to ECG 08/01/2018 12:25:45 No significant changes EKG: Rate/Rhythm: Normal Sinus Rhythm QRS, ST, T-waves: No changes consistent w/ acute ischemia Impression: No evidence of ischemia or arrhythmia Electronically Signed On 02-10-2019 17:21:48 CDT by Carlos Pena [email or web address] <ELECTRONICALLY SIGNED> By: Carlos Pena MD, FACC 02/10/19 1721 0458 0458 Carlos Pena MD, FACC /EPI
[2019-02-11] VITALS: BP 98/61
[2019-02-11 02:06] LABS: GLYCOHEMOGLOBIN (HGB A1C) 7.7 % (4.8-5.6)
[2019-02-11 04:00] VITALS: BP 117/60
[2019-02-11 05:29] LABS: ABSOLUTE LYMPHOCYTES 0.9 thou/uL (0.8-5.3); ABSOLUTE MONOCYTES 0.7 thou/uL (0.0-1.2); ABSOLUTE NEUTROPHILS 7.1 thou/uL (1.6-8.1); BASOPHILS 0.2 %; EOSINOPHILS 0.1 %; HEMATOCRIT 25.1 % (37.0-47.0); LYMPHOCYTES 10.8 %; MCH 24.2 pg (26.0-34.0); MCHC 32.1 g/dL (28.0-37.0); MCV 75.4 fL (80.0-100.0); MONOCYTES 7.7 %; MPV 7.5 fl. (7.2-11.1); NUCLEATED RBCS 0 /100WBC; PLATELET COUNT* 251 thou/uL (150-400); POLYS 81.2 %; RBC 3.32 mil/uL (4.20-5.00); RDW-CV 22.2 % (10.5-14.5); WBC 8.7 thou/uL (4.0-11.0)
[2019-02-11 05:55] LABS: CALCIUM 8.7 mg/dL (8.5-10.1); CREATININE 0.7 mg/dL (0.6-1.3); POTASSIUM 3.6 mmol/L (3.5-5.1)
--- NOTE | 2019-02-11 05:59 | NUR ---
PATIENT SLEPT MOST OF THE NIGHT. PATIENT IS UPSET THAT DR. VELAZQUEZ DECREASED HER HOME PAIN MEDICATION DOESN'T UNDERSTAND HOW HE CAN DO THAT. CALLED AND ASKED DR. JIMENEZ WHO WAS OPERATIONS INTELLIGENCE SUPERINTENDENT HE STATED HE WOULD NOT INCREASE HER MEDS DUE TO HER PNEUMONIA. PATIENT NOTIFIED AND WAS STILL UPSET. PATIENT REFUSED BREATHING TREATMENTS AFTER THE FIRST ONE BECAUSE SHE DIDNT WANT TO BE WOKE UP BUT PATIENT STATED THIS MORNING THAT SHE FELT THAT SHE WAS GETTING WORSE. PATIENT REMAINS ON OXYGEN AT 4L PER NC. PATIENT WAS GIVEN PAIN MEDICINE THREE TIMES THIS SHIFT. WILL CONTINUE TO MONITOR.
[2019-02-11 07:09] LABS: ANISOCYTOSIS 1+; HYPOCHROMASIA 1+
[2019-02-11 08:00] VITALS: BP 140/68
[2019-02-11 12:05] VITALS: BP 143/101
--- NOTE | 2019-02-11 14:08 | NUR ---
MET WITH PT TO DISCUSS HOME SITUATION/DC PLANNING. PT LIVE ALONE. SHE HAS SPIKE MACHINE FEEDER THRU [facility] FOR 3HR/DAY, 4 DAYS A WEEK. [facility] ALSO SUPPLIES HER MEDS. PT HAS WALKER, CANE AND W/C BUT STATES DOESTN' USE THEM. PT FOCUSED ON '2 SCRIPTS' SHE STATES SHE HAD WHEN SHE CAME TO THE ER FOR KEFLEX AND A PAIN MED THAT SHE CANNOT LOCATE. PATIENT EXPERIENCE/GOYO AWARE AND WILL SEE PT. PT PLANS TO RETURN HOME AT [place]. WILL FOLLOW
[2019-02-11 15:23] VITALS: BP 126/58
[2019-02-11 20:00] VITALS: BP 126/66
[2019-02-12 00:22] VITALS: BP 152/67
[2019-02-12 04:00] VITALS: BP 145/85
--- NOTE | 2019-02-12 04:12 | NUR ---
ASSUMED PT CARE AT APPROX 1930. PT IS AWAKE AND ORIENTED X4. VSS ON 2L OF O2/NC. INSPECTOR HAIRSPRING IN PLACE TRACING SR. ASSESSMENT DONE AND CHARTED. NO DESATURATIONS NOTED. PT C/O BACK PAIN RELEIVED BY PAIN MEDS GIVEN PER JUL. PT STATED SHE'S FEELING BETTER. C/O SOME MOUTH SORES SHE GOT FROM HER BREATHING TX, STATED SHE'S GOT THEM BEFORE AND WAS GIVEN VALACYCLOVIR.REMINDED ON THE IMPORTANCE OF GOOD ORAL HYGIENE, SUPPLIES PROVIDED, DR LAI INFORMED AND VALACYCLOVIR WAS GIVEN PER JUL ORDERED. PT IS ABLE TO SLEEP MOST OF THE NIGHT. CALL LIGHT WITHIN REACH. HOURLY ROUNDING DONE FOR SAFETY.
[2019-02-12 08:00] VITALS: BP 117/63
[2019-02-12 11:45] VITALS: BP 144/66
[2019-02-12 14:24] LABS: CALCIUM 8.8 mg/dL (8.5-10.1); CREATININE 0.8 mg/dL (0.6-1.3); POTASSIUM 3.6 mmol/L (3.5-5.1)
[2019-02-12 14:49] LABS: ABSOLUTE BASOPHILS 0.1 thou/uL (0.0-0.2); ABSOLUTE EOSINOPHILS 0.2 thou/uL (0.0-0.7); ABSOLUTE LYMPHOCYTES 1.7 thou/uL (0.8-5.3); ABSOLUTE MONOCYTES 0.5 thou/uL (0.0-1.2); ABSOLUTE NEUTROPHILS 4.6 thou/uL (1.6-8.1); BASOPHILS 0.9 %; EOSINOPHILS 2.6 %; HEMATOCRIT 29.1 % (37.0-47.0); HEMOGLOBIN 9.2 gm/dL (12.0-15.0); MCH 24.2 pg (26.0-34.0); MCHC 31.6 g/dL (28.0-37.0); MCV 76.4 fL (80.0-100.0); MONOCYTES 7.2 %; MPV 7.6 fl. (7.2-11.1); NUCLEATED RBCS 0 /100WBC; PLATELET COUNT* 291 thou/uL (150-400); POLYS 65.3 %; RBC 3.81 mil/uL (4.20-5.00); RDW-CV 22.1 % (10.5-14.5); WBC 7.1 thou/uL (4.0-11.0)
[2019-02-12 15:27] LABS: PLATELET ESTIMATE ADEQUATE
[2019-02-12 16:17] VITALS: BP 135/69
--- NOTE | 2019-02-12 18:38 | NUR ---
PT VSS ALL DAY. NSR ON TELE, PT REPORTS PAIN IN LOWER BACK AND LEGS. PT ON CLEAR LIQUID DIET AND NPO AT MIDNIGHT. PT UP TO BATHROOM, BOWEL PREP FOR EGD 11AM TOMORROW AND POSSIBLE SCOPE? POSSESSIONS AND CALL LIGHT WITHIN REACH. HOURLY ROUNDING PERFORMED.
--- NOTE | 2019-02-12 19:05 | NUR ---
THIS RN AGREES WITH ASSESSMENT AND CHARTING OF AL SHAH.
[2019-02-12 20:00] VITALS: BP 112/53
[2019-02-13 00:42] VITALS: BP 136/65
[2019-02-13 04:53] LABS: ABSOLUTE EOSINOPHILS 0.2 thou/uL (0.0-0.7); ABSOLUTE LYMPHOCYTES 1.4 thou/uL (0.8-5.3); ABSOLUTE MONOCYTES 0.5 thou/uL (0.0-1.2); ABSOLUTE NEUTROPHILS 3.1 thou/uL (1.6-8.1); BASOPHILS 0.7 %; EOSINOPHILS 4.4 %; HEMATOCRIT 30.8 % (37.0-47.0); HEMOGLOBIN 9.8 gm/dL (12.0-15.0); LYMPHOCYTES 27.4 %; MCH 23.9 pg (26.0-34.0); MCHC 31.9 g/dL (28.0-37.0); MCV 75.1 fL (80.0-100.0); MONOCYTES 9.2 %; MPV 7.4 fl. (7.2-11.1); NUCLEATED RBCS 0 /100WBC; PLATELET COUNT* 274 thou/uL (150-400); POLYS 58.3 %; RDW-CV 22.5 % (10.5-14.5); WBC 5.3 thou/uL (4.0-11.0)
[2019-02-13 05:07] LABS: CALCIUM 8.9 mg/dL (8.5-10.1); CREATININE 0.7 mg/dL (0.6-1.3); POTASSIUM 3.3 mmol/L (3.5-5.1)
--- NOTE | 2019-02-13 07:32 | NUR ---
PT ALERT AND ORIENTED. VSS ON RA. ASSESSMENT DOCUMENTED. MEDS GIVEN PER EMAR. NPO AFTER MN. PT HAD MULTIPLR BM THIS SHIFT. BOWEL PREP FOR COLONOSCOPY AND EGD THIS AM. UP TO BATHROOM. CALL LIGHT WITHIN REACH. HOURLY ROUNDINGS MADE. WILL CONTINUE TO MONITOR.
[2019-02-13 07:59] VITALS: BP 136/67
[2019-02-13 09:04] VITALS: BP 136/67
--- NOTE | 2019-02-13 09:35 | NUR ---
ASSUMED CARE OF PT THIS AM AROUND 0715- UTILITY CLERK IN PLACE ORDERED, TRACING SR- UPON ASSESSMENT PT NOTED TO BE RESTING IN BED SIDE CHAIR, WATCHING TV- PT A&O X4- CONTINENT OF BOWEL AND BLADDER- UP AD-KAM IN ROOM, STEADY GAIT NOTED- LCTA, RESP EVEN AND UN-LABORED- VSS, O2 SAT 98% ON RA- ABD SOFT/ROUND/NON-TENDER, BS X4 QUADS- BM NOTED THIS AM R/T BOWEL PREP- PT NPO THIS AM FOR PLANNED EGD/COLONOSCOPY- SHOWER TAKEN PRIOR TO PROCEDURE THIS AM- IV NOTED TO LEFT FA INTACT, IV ABT INFUSSING PRESCIBED- BS MONITORED ORDERED, SSI PRESCIBED- PT RATES PAIN 9/10 TO BACK, PRN HYDROCODONE NOTED- PT NOTED TO HAVE LEFT UNIT VIA W/C FOR PLANNED EGD/COLON AROUND 0830- ALL NEEDS MET AT THIS TIME-WCTM
[2019-02-13 12:06] VITALS: BP 150/75
--- NOTE | 2019-02-13 12:43 | NUR ---
Nutrition: Pt assessed for high BMI. Admitted with SOA. Wt is usually ~260s. BG is better 124, albumin 3.3. On insulin. H/o GERD, DM, HTN. Heart Healthy diet with a CHO count is ordered. Appears at low nutrition risk. GOAL: gradual weight loss, good BG control.
[2019-02-13 14:30] VITALS: BP 150/75
[2019-02-13] MEDS ORDERED: PROAIR HFA8.5 GM INH (14:54)
[2019-02-13] MEDS ORDERED: AUGMENTIN 875-1 EACH PO (14:54)
[2019-02-13] MEDS ORDERED: MULTIVITAMINS PO (14:55)
== END 2019-02-13 15:53 | disposition home or self-care (01) | DRG 871 ==
LOC: M.ERS 04:50 → M.2W 07:41 → M.TBA-ER 07:41 → M.2W 08:41
PROVIDERS: Emergency Medicine; Internal Medicine; ADMIT Family Medicine
DX: A41.9 Sepsis, unspecified organism (principal); J96.00 Acute respiratory failure, unspecified whether with hypoxia or hypercapnia; J69.0 Pneumonitis due to inhalation of food and vomit; T40.601A Poisoning by unspecified narcotics, accidental (unintentional), initial encounter; I10 Essential (primary) hypertension; E78.5 Hyperlipidemia, unspecified; F32.9 Major depressive disorder, single episode, unspecified; G47.00 Insomnia, unspecified; F41.9 Anxiety disorder, unspecified; G89.29 Other chronic pain; M54.9 Dorsalgia, unspecified; M16.11 Unilateral primary osteoarthritis, right hip; J06.9 Acute upper respiratory infection, unspecified; R00.0 Tachycardia, unspecified; D64.9 Anemia, unspecified; K21.9 Gastro-esophageal reflux disease without esophagitis; E11.65 Type 2 diabetes mellitus with hyperglycemia; K44.9 Diaphragmatic hernia without obstruction or gangrene; K64.4 Residual hemorrhoidal skin tags; D17.79 Benign lipomatous neoplasm of other sites; Y92.89 Other specified places as the place of occurrence of the external cause; Z86.711 Personal history of pulmonary embolism; Z88.7 Allergy status to serum and vaccine; Z88.8 Allergy status to other drugs, medicaments and biological substances; Z86.010 Personal history of colon polyps; Z82.49 Family history of ischemic heart disease and other diseases of the circulatory system; Z65.8 Other specified problems related to psychosocial circumstances

== ENCOUNTER 2019-03-08 00:47 | Inpatient (IN) | payer MEDICAID ==
[~2019-03-08] VITALS: Ht 170.2 cm; Wt 121.1 kg
[2019-03-08] VITALS (7 sets, daily range): BP systolic 120–154; BP diastolic 63–90
[~2019-03-08 00:47] MED LIST changes: +AUGMENTIN 875-1 EACH PO; +MULTIVITAMINS PO
[2019-03-08] MEDS ORDERED: LUNESTA3 MG PO (01:14)
[2019-03-08 01:53] LABS: ABSOLUTE EOSINOPHILS 0.3 thou/uL (0.0-0.7); ABSOLUTE LYMPHOCYTES 1.2 thou/uL (0.8-5.3); ABSOLUTE MONOCYTES 0.8 thou/uL (0.0-1.2); ABSOLUTE NEUTROPHILS 7.9 thou/uL (1.6-8.1); BASOPHILS 0.4 %; EOSINOPHILS 2.7 %; HEMATOCRIT 32.2 % (37.0-47.0); HEMOGLOBIN 10.4 gm/dL (12.0-15.0); LYMPHOCYTES 11.3 %; MCH 24.2 pg (26.0-34.0); MCHC 32.2 g/dL (28.0-37.0); MCV 75.2 fL (80.0-100.0); MPV 8.1 fl. (7.2-11.1); NUCLEATED RBCS 0 /100WBC; PLATELET COUNT* 314 thou/uL (150-400); POLYS 77.6 %; RBC 4.29 mil/uL (4.20-5.00); RDW-CV 19.9 % (10.5-14.5); WBC 10.2 thou/uL (4.0-11.0)
[2019-03-08 02:04] LABS: CALCIUM 9.7 mg/dL (8.5-10.1); POTASSIUM 3.9 mmol/L (3.5-5.1)
[2019-03-08 02:08] LABS: PROTIME 10.2 Seconds (9.20-11.50)
[2019-03-08 02:15] LABS: ALBUMIN 3.6 g/dL (3.4-5.0); TOTAL BILIRUBIN 0.2 mg/dL (<0.1-1.0); TOTAL PROTEIN 7.7 g/dL (6.4-8.2)
--- NOTE | 2019-03-08 03:45 | NUR ---
POST SPLINT PLACEMENT, FINGERS, DRY, WARM, SENSATION INTACT; PT ABLE TO MOVE FINGERS INSTRUCTED, CAP REFILL LESS THAN 3 SECS
--- NOTE | 2019-03-08 03:57 | NUR ---
PT CAPABLE OF MOVING AROUND IN BED, BUT STATES SHE IS NOT ABLE TO GET UP TO USE BEDSIDE COMMODE. PT HAS TECH AT THE BEDSIDE TO ASSIST, BUT YELLING AT NURSES AT NURSES STATION. PT ENCOURAGED TO GET UP TO COMMODE AND INFORMED THAT THERE IS NOT MEDICALLY NECESSARY TO INSERT A AGUILERA CATHETER AT THIS TIME. PT CONTINUES TO YELL AT NURSING STAFF. PT WAS ABLE TO TRANSFER FROM BED TO COMMODE AND FROM COMMODE BACK TO BED WITH EASE.
[2019-03-08] MEDS ORDERED: MECLIZINE HCL25 M1 (06:20)
--- NOTE | 2019-03-08 07:28 | NUR ---
RECEIVED REPORT FROM KRISTEL SHAH. PT TRANSFERRED TO 211. PT A&OX4. MAIL LIST LIBRARIAN IN PLACE. VSS. ADMISSION HISTORY & PHYSICAL ASSESSMENT COMPLETED AND CHARTED. ORIENTED TO ROOM AND CALL LIGHT. PT ON O2 AT 2L NC. PT UP STANDBY TO RESTROOM. PT COMPLAINED OF RIGHT ARM PAIN- MEDS GIVEN PER MAR. CALL LIGHT WITHIN REACH.
[2019-03-08 16:37] LABS: URINE BILIRUBIN NEGATIVE (Negative); URINE BLOOD NEGATIVE (Negative); URINE CLARITY CLEAR; URINE COLOR YELLOW; URINE GLUCOSE-RANDOM TRACE (Negative); URINE KETONES NEGATIVE (Negative); URINE LEUKOCYTES-REFLEX NEGATIVE (Negative); URINE NITRITE-REFLEX NEGATIVE (Negative); URINE PROTEIN NEGATIVE (Negative); URINE UROBILINOGEN 0.2 E.U./dl (0.2-1.0)
--- NOTE | 2019-03-08 21:26 | NUR ---
VSS, ST ON TELE DUE TO PAIN, A&OX4. HIGH FALL RISK DUE TO FALL AT HOME. HOURLY ROUNDING PERFORMED. POSSESSIONS AND CALL LIGHT WITHIN REACH. PT ON 2L O2 VIA NC DUE TO IV MORPHINE ADMINISTRATION. BROKEN HUMERUS CAUSING SEVERE PAIN. ARM IN SLING.
[2019-03-09] VITALS (7 sets, daily range): BP systolic 99–139; BP diastolic 81–83
--- NOTE | 2019-03-09 07:00 | NUR ---
ASSUMED CARES AT 1930. ALERT AND ORIENTED. DOES EASILY GET ANXIOUS. NWB ALLI. ALLI IN SLING. ABRASIONS AND BRUISING TO FACE. HAS PAIN TO RIGHT SHOUDLER. PAIN MEDS GIVEN NEEDED. PT HAD COUGH WITH WHEEZING AND ASKED FOR PATRICIA TX. ALSO WANTED FLEXERIL FOR MUSCLE CRAMPS. ORDER OBTAINED.RHYTHM STRIP SHOWING NSR TACHY. SBA UP TO BATHROOM. HOPING TO GO HOME TODAY OR TOMORROW. SLEPT SOME. CALL LIGHT IN REACH.
--- NOTE | 2019-03-09 10:29 | NUR ---
assumed pt care report received from nurse.pt is alert, awake, oriented.pt states " she does not want her daughter to be involved in a care or to be given any information about her". pt founf kying in bed, pt placed in sitting position. vss. on ra. 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 pt is anxious. morning med given. antianxiety was included as well as pain medicine for generalized pain. pt states she wasnt her hair washed. it service delivery manager notified. pt also complains that her nurse has not been in her room since this am to other staff. this nurse mentioned to pt that she was in her room early this morning and that i too her vs. pt says " oh, no sorry, i was talking about the lady in short blonde hair". nurse gave morning medicine and adjusted pt sling and splint. pt is constipated and wants some stool softener. made aware
[2019-03-09] MEDS ORDERED: CYCLOBENZAPRINE10 MG PO (10:44)
[2019-03-09] MEDS ORDERED: MAGNESIUM250 M1 PO (10:47)
[2019-03-09] MEDS ORDERED: IRON236 MG PO (10:49)
--- NOTE | 2019-03-09 11:07 | EKG ---
[place] [address] ELECTROCARDIOGRAM REPORT Name: IESHA HERNANDEZ Room: [address] ADM IN .R.#: [id number] Admission: 03/08/19 Attend Phys: Riki Loya Discharge: Date of : 57 Report #: [id number] THIS REPORT FOR: //name// [facility] ED Test Date: 2019-03-08 Test Time: 01:47:22 Pat Name: IESHA HERNANDEZ Department: Room: [facility] Gender: F Release Specialist: ND : 1955 Requested By: Maricel Mazariegos Order Number: [id number] MD: Varun Narayanan Measurements Intervals [place] Rate: 133 P: -12 [place]: 140 QRS: -3 QRSD: 93 T: 49 QT: 300 QTc: 447 Interpretive Statements Sinus tachycardia Baseline wander in lead(s) I,III,aVL Compared to ECG 02/10/2019 04:58:57 No significant changes Electronically Signed On 03-09-2019 11:07:35 CDT by Varun Narayanan [email or web address] <ELECTRONICALLY SIGNED> By: Varun Narayanan MD, FAC 03/09/19 1107 0147 0147 aVrun Narayanan MD, FAC /EPI
--- NOTE | 2019-03-09 12:43 | NUR ---
pt heart rate is 140s steady. dr aware. no new order. suggested that pt stay active at home to better her heart.
--- NOTE | 2019-03-09 14:05 | NUR ---
PT LEFT FLOOR AT 1355 ACCOMPANIED BY SAWING AND ASSEMBLY SUPERVISOR ON WHEELCHAIR.
== END 2019-03-09 13:50 | disposition home or self-care (01) | DRG 563 ==
LOC: M.ERS 00:47 → M.TBA-ER 03:53 → M.2W 03:53
PROVIDERS: Emergency Medicine; ADMIT Internal Medicine
PROC: 2W3AX1Z Immobilization of Right Upper Arm using Splint (ICD-10-PCS; principal; 2019-03-08)
DX: S42.331A Displaced oblique fracture of shaft of humerus, right arm, initial encounter for closed fracture (principal); E78.5 Hyperlipidemia, unspecified; F41.9 Anxiety disorder, unspecified; F32.9 Major depressive disorder, single episode, unspecified; E11.22 Type 2 diabetes mellitus with diabetic chronic kidney disease; N18.3 Chronic kidney disease, stage 3 (moderate); I12.9 Hypertensive chronic kidney disease with stage 1 through stage 4 chronic kidney disease, or unspecified chronic kidney disease; G47.00 Insomnia, unspecified; W18.39XA Other fall on same level, initial encounter; G89.29 Other chronic pain; M54.9 Dorsalgia, unspecified; M16.11 Unilateral primary osteoarthritis, right hip; Z86.711 Personal history of pulmonary embolism; Z88.8 Allergy status to other drugs, medicaments and biological substances; Z88.7 Allergy status to serum and vaccine; Y93.89 Activity, other specified; Y92.89 Other specified places as the place of occurrence of the external cause; Y99.8 Other external cause status; Z87.891 Personal history of nicotine dependence; Z79.84 Long term (current) use of oral hypoglycemic drugs; Z79.899 Other long term (current) drug therapy; Z82.49 Family history of ischemic heart disease and other diseases of the circulatory system

== ENCOUNTER 2019-03-10 16:20 | Emergency (ER) | payer MEDICAID ==
[~2019-03-10] VITALS: Ht 170.2 cm; Wt 113.8 kg
[~2019-03-10 16:20] MED LIST changes: +CYCLOBENZAPRINE10 MG PO; +IRON236 MG PO; +LUNESTA3 MG PO; +MAGNESIUM250 M1 PO; +MECLIZINE HCL25 M1
[2019-03-10 18:00] VITALS: BP 155/78
== END 2019-03-10 18:00 | disposition home or self-care (01) ==
LOC: M.ERS 16:20
DX: S42.391A Other fracture of shaft of right humerus, initial encounter for closed fracture (principal); E11.9 Type 2 diabetes mellitus without complications; I10 Essential (primary) hypertension; E78.5 Hyperlipidemia, unspecified; G47.30 Sleep apnea, unspecified; F41.9 Anxiety disorder, unspecified; F32.9 Major depressive disorder, single episode, unspecified; M16.11 Unilateral primary osteoarthritis, right hip; G89.29 Other chronic pain; M54.9 Dorsalgia, unspecified; Z88.7 Allergy status to serum and vaccine; Z86.711 Personal history of pulmonary embolism; Z87.01 Personal history of pneumonia (recurrent); Z86.2 Personal history of diseases of the blood and blood-forming organs and certain disorders involving the immune mechanism; Z88.8 Allergy status to other drugs, medicaments and biological substances; X58.XXXA Exposure to other specified factors, initial encounter; Y93.89 Activity, other specified; Y92.89 Other specified places as the place of occurrence of the external cause; Y99.8 Other external cause status

== ENCOUNTER 2019-03-10 23:09 | Emergency (ER) | payer MEDICAID ==
[~2019-03-10] VITALS: Ht 170.2 cm; Wt 113.4 kg
[2019-03-11 03:02] VITALS: BP 141/86
== END 2019-03-11 03:04 | disposition home or self-care (01) ==
LOC: M.ERS 23:09
DX: S40.021A Contusion of right upper arm, initial encounter (principal); E11.9 Type 2 diabetes mellitus without complications; I10 Essential (primary) hypertension; E78.5 Hyperlipidemia, unspecified; G47.30 Sleep apnea, unspecified; F41.9 Anxiety disorder, unspecified; F32.9 Major depressive disorder, single episode, unspecified; M16.11 Unilateral primary osteoarthritis, right hip; Z86.711 Personal history of pulmonary embolism; Z86.2 Personal history of diseases of the blood and blood-forming organs and certain disorders involving the immune mechanism; Z88.7 Allergy status to serum and vaccine; Z88.8 Allergy status to other drugs, medicaments and biological substances; X58.XXXA Exposure to other specified factors, initial encounter; Y93.89 Activity, other specified; Y92.89 Other specified places as the place of occurrence of the external cause; Y99.8 Other external cause status

== ENCOUNTER 2019-03-14 16:22 | Emergency (ER) | payer MEDICAID ==
[~2019-03-14] VITALS: Ht 167.6 cm; Wt 122.5 kg
[2019-03-14 19:02] VITALS: BP 146/60
== END 2019-03-14 18:48 | disposition home or self-care (01) ==
LOC: M.ERS 16:22
DX: S42.391D Other fracture of shaft of right humerus, subsequent encounter for fracture with routine healing (principal); E11.9 Type 2 diabetes mellitus without complications; I10 Essential (primary) hypertension; E78.5 Hyperlipidemia, unspecified; G47.30 Sleep apnea, unspecified; F41.9 Anxiety disorder, unspecified; F32.9 Major depressive disorder, single episode, unspecified; G89.29 Other chronic pain; M54.9 Dorsalgia, unspecified; M16.11 Unilateral primary osteoarthritis, right hip; Z86.711 Personal history of pulmonary embolism; Z86.2 Personal history of diseases of the blood and blood-forming organs and certain disorders involving the immune mechanism; Z88.7 Allergy status to serum and vaccine; Z88.8 Allergy status to other drugs, medicaments and biological substances; X58.XXXD Exposure to other specified factors, subsequent encounter; Z79.899 Other long term (current) drug therapy

== ENCOUNTER 2019-10-16 19:45 | Emergency (ER) | payer MEDICAID ==
[~2019-10-16] VITALS: Ht 170.2 cm; Wt 111.6 kg
[2019-10-16] MEDS ORDERED: LYRICA150 MG PO (20:00)
[2019-10-16] MEDS ORDERED: BACLOFEN 10MG T10 MG PO (20:00)
[2019-10-16 20:19] LABS: ABSOLUTE BASOPHILS 0.1 thou/uL (0.0-0.2); ABSOLUTE EOSINOPHILS 0.1 thou/uL (0.0-0.7); ABSOLUTE LYMPHOCYTES 1.9 thou/uL (0.8-5.3); ABSOLUTE MONOCYTES 0.6 thou/uL (0.0-1.2); ABSOLUTE NEUTROPHILS 6.4 thou/uL (1.6-8.1); BASOPHILS 0.8 %; EOSINOPHILS 0.7 %; HEMATOCRIT 38.7 % (37.0-47.0); HEMOGLOBIN 12.7 gm/dL (12.0-15.0); LYMPHOCYTES 21.4 %; MCH 24.8 pg (26.0-34.0); MCHC 32.8 g/dL (28.0-37.0); MCV 75.5 fL (80.0-100.0); MONOCYTES 6.1 %; MPV 7.9 fl. (7.2-11.1); NUCLEATED RBCS 0 /100WBC; PLATELET COUNT* 355 thou/uL (150-400); RBC 5.12 mil/uL (4.20-5.00); RDW-CV 16.9 % (10.5-14.5); WBC 9.1 thou/uL (4.0-11.0)
[2019-10-16 20:26] LABS: CALCIUM 9.3 mg/dL (8.5-10.1); CREATININE 0.9 mg/dL (0.6-1.3); POTASSIUM 3.8 mmol/L (3.5-5.1)
[2019-10-16 20:28] LABS: INR 1.1; PROTIME 10.9 Seconds (9.20-11.50)
[2019-10-16] MEDS ORDERED: ZOFRAN ODT4 MG DISSOLVE (20:35)
[2019-10-16 20:50] LABS: ALBUMIN 3.9 g/dL (3.4-5.0); CK-MB MASS 1.2 ng/mL (<0.5-3.6); MAGNESIUM 1.5 mg/dL (1.8-2.4); TOTAL BILIRUBIN 0.3 mg/dL (<0.1-1.0); TOTAL PROTEIN 7.9 g/dL (6.4-8.2)
[2019-10-16 21:44] VITALS: BP 144/86
--- NOTE | 2019-10-20 16:07 | EKG ---
[place] [address] ELECTROCARDIOGRAM REPORT Name: IESHA HERNANDEZ Room: [facility]#: [id number] Admission: 10/16/19 Attend Phys: Discharge: 10/16/19 Date of : 57 Date of Service: 10/16/19 [facility] Report #: [id number] THIS REPORT FOR: //name// [facility] ED Test Date: 2019-10-16 Test Time: 19:50:18 Pat Name: IESHA HERNANDEZ Department: Room: Gender: F Lining Marker: O : 1955 Requested By: Chano Campos Order Number: [id number] MD: René Munguia Measurements Intervals [place] Rate: 117 P: -5 [place]: 138 QRS: -1 QRSD: 91 T: 35 QT: 329 QTc: 459 Interpretive Statements Sinus tachycardia Abnormal R-wave progression, early transition Compared to ECG 03/08/2019 01:47:22 No significant changes Electronically Signed On 10-20-2019 16:05:06 CDT by René Munguia [email or web address] <ELECTRONICALLY SIGNED> By: René Munguia MD, [facility] 10/20/19 1605 1950 1950 René Munguia MD, [facility] /EPI
== END 2019-10-16 21:54 | disposition home or self-care (01) ==
LOC: M.ERS 19:45
PROVIDERS: Family Medicine
DX: E11.9 Type 2 diabetes mellitus without complications (principal); R07.89 Other chest pain; R11.2 Nausea with vomiting, unspecified; I10 Essential (primary) hypertension; E78.5 Hyperlipidemia, unspecified; M54.9 Dorsalgia, unspecified; G89.29 Other chronic pain; G47.30 Sleep apnea, unspecified; F32.9 Major depressive disorder, single episode, unspecified; F41.9 Anxiety disorder, unspecified; Z86.711 Personal history of pulmonary embolism; Z86.2 Personal history of diseases of the blood and blood-forming organs and certain disorders involving the immune mechanism; Z88.7 Allergy status to serum and vaccine; Z88.8 Allergy status to other drugs, medicaments and biological substances

== ENCOUNTER 2019-12-17 15:55 | Inpatient (IN) | payer MEDICAID ==
[~2019-12-17] VITALS: Ht 170.2 cm; Wt 128.8 kg
[~2019-12-17 15:55] MED LIST changes: +BACLOFEN 10MG T10 MG PO; +LYRICA150 MG PO; +ZOFRAN ODT4 MG DISSOLVE
[2019-12-17 15:59] VITALS: BP 129/60
[2019-12-17 16:20] LABS: ABSOLUTE BASOPHILS 0.1 thou/uL (0.0-0.2); ABSOLUTE EOSINOPHILS 0.1 thou/uL (0.0-0.7); ABSOLUTE LYMPHOCYTES 1.2 thou/uL (0.8-5.3); ABSOLUTE MONOCYTES 0.7 thou/uL (0.0-1.2); ABSOLUTE NEUTROPHILS 11.3 thou/uL (1.6-8.1); BASOPHILS 0.4 %; EOSINOPHILS 0.6 %; HEMATOCRIT 31.7 % (37.0-47.0); HEMOGLOBIN 10.3 gm/dL (12.0-15.0); LYMPHOCYTES 8.8 %; MCH 25.1 pg (26.0-34.0); MCHC 32.4 g/dL (28.0-37.0); MCV 77.5 fL (80.0-100.0); MONOCYTES 5.4 %; MPV 7.7 fl. (7.2-11.1); NUCLEATED RBCS 0 /100WBC; PLATELET COUNT* 256 thou/uL (150-400); POLYS 84.8 %; RBC 4.09 mil/uL (4.20-5.00); WBC 13.4 thou/uL (4.0-11.0)
[2019-12-17 16:32] LABS: CALCIUM 8.3 mg/dL (8.5-10.1); CREATININE 0.9 mg/dL (0.6-1.3)
[2019-12-17 16:33] LABS: PROTIME 10.4 Seconds (9.20-11.50)
[2019-12-17 16:45] LABS: CK-MB MASS 2.4 ng/mL (<0.5-3.6); TOTAL BILIRUBIN 0.3 mg/dL (<0.1-1.0); TOTAL PROTEIN 6.6 g/dL (6.4-8.2)
--- NOTE | 2019-12-17 17:40 | EKG ---
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: : 1955 Requested By: Chano Campos Order Number: [id number] MD: Carlos Pena Measurements Intervals [place] Rate: 101 P: 23 MS: 146 QRS: 9 QRSD: 84 T: 49 QT: 339 QTc: 440 Interpretive Statements Sinus tachycardia Abnormal R-wave progression, early transition Compared to ECG 10/16/2019 19:50:18 No significant changes Electronically Signed On 12-17-2019 17:40:32 CDT by Carlos Pena [email or web address] <ELECTRONICALLY SIGNED> By: Carlos Pena MD, [facility] 12/17/19 1740 1622 1622 Carlos Pena MD, [facility] /EPI
[2019-12-17 17:59] LABS: BE 3.5 mmol/L (-2 to +3); PCO2 40.9 mmHg (35.0-45.0); PO2 63.1 mmHg (75.0-100.0)
[2019-12-17 19:50] VITALS: BP 121/55; BP 143/78
[2019-12-18] VITALS: BP 146/62
[2019-12-18 00:36] LABS: URINE BILIRUBIN NEGATIVE (Negative); URINE BLOOD NEGATIVE (Negative); URINE CLARITY CLEAR; URINE COLOR YELLOW; URINE GLUCOSE-RANDOM NEGATIVE (Negative); URINE KETONES NEGATIVE (Negative); URINE LEUKOCYTES-REFLEX NEGATIVE (Negative); URINE NITRITE-REFLEX NEGATIVE (Negative); URINE PROTEIN NEGATIVE (Negative); URINE UROBILINOGEN 0.2 E.U./dl (0.2-1.0)
[2019-12-18 00:45] LABS: AMP/METHAMP Negative (Negative); BARBITURATES Negative (Negative); BENZODIAZEPINES Negative (Negative); COCAINE Negative (Negative); METHADONE Negative (Negative); OPIATES POSITIVE (Negative); PCP Negative (Negative); THC POSITIVE (Negative)
[2019-12-18 04:00] VITALS: BP 146/81
[2019-12-18 08:17] VITALS: BP 152/73
[2019-12-18 09:51] LABS: HEMATOCRIT 35.4 % (37.0-47.0); HEMOGLOBIN 11.5 gm/dL (12.0-15.0); MCH 25.2 pg (26.0-34.0); MCHC 32.3 g/dL (28.0-37.0); MCV 77.9 fL (80.0-100.0); MPV 8.2 fl. (7.2-11.1); RBC 4.55 mil/uL (4.20-5.00); RDW-CV 18.1 % (10.5-14.5); WBC 7.6 thou/uL (4.0-11.0)
[2019-12-18 10:02] LABS: CREATININE 0.8 mg/dL (0.6-1.3); MAGNESIUM 1.8 mg/dL (1.8-2.4); POTASSIUM 3.7 mmol/L (3.5-5.1)
[2019-12-18 12:00] VITALS: BP 148/70
--- NOTE | 2019-12-18 12:28 | NUR ---
According to discussion in prime time rounds, possible for pt to have a goal of dc home tomorrow. Possible for iv abx to change oral, cog eval pending. Pt has needs met at home prior, no other CM needs expressed at this time.
--- NOTE | 2019-12-18 15:01 | NUR ---
CM SPOKE TO THE PT TO DISCUSS HER HOME SITUATION, DISCHARGE PLANNING, AND TO INFORM OF THE ROLE OF CM. PT A&O. PT INDEPENDENT WITH ADL'S. PT PT RESIDES AT HOME ALONE. PT USES [facility] WITH [employer] 3 HRS/DAY, 4 DAYS/WK. PT OWNS A WALKER AND CANE. PT'S PCP IS ILENE STRINGER MD AT [facility]. CM WILL REMAIN AVAILABLE TO ASSIST AND FOLLOW NEEDED.
[2019-12-18 16:00] VITALS: BP 130/65
--- NOTE | 2019-12-18 16:02 | NUR ---
PT IN BED T/O DAY WORKED WITH THERAPY WEAK BUT ONLY SBA USES RESTROOM CONTINENT PT IS CONFUSED AND FORGETFUL ESPECIALLY TO SITUATION XRAY TO HAND DONE PT IS A POOR HISTORIAN SR TO ST ON THE MONITOR RFA IV SL CALL LIGHT IN REACH
[2019-12-18 19:50] VITALS: BP 123/66
[2019-12-19] VITALS: BP 128/58
[2019-12-19 04:00] VITALS: BP 121/46; BP 169/67
[2019-12-19 08:57] VITALS: BP 148/74
[2019-12-19 09:00] VITALS: BP 148/74
--- NOTE | 2019-12-19 11:58 | NUR ---
PT WOULD NOT WAIT ON DISCHARGE ORDERS FROM THE DR PT KEPT COMING OUT TO THE NURSE'S STATION ASKING TOOK OFF WAIST PLEATER HERSELF WAS ABOUT TO PULL IV OUT STATED "I CANNOT TAKE IT ANYMORE. I'M LEAVING" PT LEFT AMA SIGNED PAPERWORK WALKED DOWNSTAIRS BY SELF DID NOT WANT TO WAIT ON RIDE
== END 2019-12-19 12:01 | disposition left against medical advice (07) | DRG 871 ==
LOC: M.ERS 15:55 → M.TBA-ER 17:10 → M.2W 17:10
PROVIDERS: Family Medicine; ADMIT Internal Medicine; ATTEND Internal Medicine
DX: A41.9 Sepsis, unspecified organism (principal); G92 Toxic encephalopathy; J18.9 Pneumonia, unspecified organism; Z68.41 Body mass index [BMI] 40.0-44.9, adult; E66.01 Morbid (severe) obesity due to excess calories; K21.9 Gastro-esophageal reflux disease without esophagitis; G89.29 Other chronic pain; F41.1 Generalized anxiety disorder; F32.9 Major depressive disorder, single episode, unspecified; G47.00 Insomnia, unspecified; E78.5 Hyperlipidemia, unspecified; E11.9 Type 2 diabetes mellitus without complications; I10 Essential (primary) hypertension; M54.9 Dorsalgia, unspecified; M16.11 Unilateral primary osteoarthritis, right hip; R65.20 Severe sepsis without septic shock; G47.33 Obstructive sleep apnea (adult) (pediatric); S69.91XA Unspecified injury of right wrist, hand and finger(s), initial encounter; W19.XXXA Unspecified fall, initial encounter; Z20.828 Contact with and (suspected) exposure to other viral communicable diseases; Y93.89 Activity, other specified; Y92.89 Other specified places as the place of occurrence of the external cause; Y99.8 Other external cause status; Z98.84 Bariatric surgery status; Z86.711 Personal history of pulmonary embolism; Z79.84 Long term (current) use of oral hypoglycemic drugs; Z79.899 Other long term (current) drug therapy; Z88.7 Allergy status to serum and vaccine; Z88.8 Allergy status to other drugs, medicaments and biological substances; Z91.048 Other nonmedicinal substance allergy status; Z79.891 Long term (current) use of opiate analgesic

== ENCOUNTER 2020-01-10 15:48 | Emergency (ER) | payer MEDICAID ==
[~2020-01-10] VITALS: Ht 170.2 cm; Wt 108.9 kg
[2020-01-10 16:20] LABS: ABSOLUTE BASOPHILS 0.1 thou/uL (0.0-0.2); ABSOLUTE LYMPHOCYTES 1.7 thou/uL (0.8-5.3); ABSOLUTE MONOCYTES 0.7 thou/uL (0.0-1.2); BASOPHILS 0.6 %; EOSINOPHILS 0.3 %; HEMATOCRIT 42.1 % (37.0-47.0); HEMOGLOBIN 14.1 gm/dL (12.0-15.0); LYMPHOCYTES 16.1 %; MCH 25.6 pg (26.0-34.0); MCHC 33.4 g/dL (28.0-37.0); MCV 76.6 fL (80.0-100.0); MONOCYTES 6.4 %; MPV 8.3 fl. (7.2-11.1); NUCLEATED RBCS 0 /100WBC; PLATELET COUNT* 343 thou/uL (150-400); POLYS 76.6 %; RDW-CV 17.5 % (10.5-14.5); WBC 10.4 thou/uL (4.0-11.0)
[2020-01-10 16:25] LABS: CALCIUM 9.7 mg/dL (8.5-10.1); CREATININE 0.9 mg/dL (0.6-1.3); POTASSIUM 3.4 mmol/L (3.5-5.1)
[2020-01-10 16:29] LABS: TOTAL BILIRUBIN 0.4 mg/dL (<0.1-1.0); TOTAL PROTEIN 8.5 g/dL (6.4-8.2)
[2020-01-10 17:56] LABS: URINE BILIRUBIN NEGATIVE (Negative); URINE BLOOD NEGATIVE (Negative); URINE CLARITY CLEAR; URINE COLOR YELLOW; URINE GLUCOSE-RANDOM NEGATIVE (Negative); URINE KETONES 1+ (Negative); URINE LEUKOCYTES-REFLEX NEGATIVE (Negative); URINE NITRITE-REFLEX NEGATIVE (Negative); URINE PROTEIN 2+ (Negative); URINE SPECIFIC GRAVITY >= 1.030 (1.005-1.030); URINE UROBILINOGEN 0.2 E.U./dl (0.2-1.0)
[2020-01-10 17:59] LABS: SQUAMOUS >10 Many /LPF (0-3); URINE RBC 0-2 Rare /HPF (0-2); URINE WBC-REFLEX 0-5 Rare /HPF (0-5)
[2020-01-10 18:00] LABS: CRYSTALS None Seen /LPF (None Seen); FINE GRANULAR CASTS 0-3 Few /LPF (None Seen); HYALINE CASTS 4-10 Moderate /LPF (None Seen); MUCUS >6 Heavy strn/LPF (None Seen)
[2020-01-10] MEDS ORDERED: ONDANSETRON ODT4 MG PO (18:22)
[2020-01-10] MEDS ORDERED: PHENERGAN 25 MG25 M1 PO (18:22)
[2020-01-10 18:45] VITALS: BP 135/88
== END 2020-01-10 18:46 | disposition home or self-care (01) ==
LOC: M.ERS 15:48
PROVIDERS: Physician Assistant
DX: R11.2 Nausea with vomiting, unspecified (principal); R10.11 Right upper quadrant pain; I10 Essential (primary) hypertension; E11.9 Type 2 diabetes mellitus without complications; E78.5 Hyperlipidemia, unspecified; E66.01 Morbid (severe) obesity due to excess calories; G47.30 Sleep apnea, unspecified; G89.29 Other chronic pain; F32.9 Major depressive disorder, single episode, unspecified; F41.9 Anxiety disorder, unspecified; Z68.37 Body mass index [BMI] 37.0-37.9, adult; Z86.711 Personal history of pulmonary embolism; Z86.2 Personal history of diseases of the blood and blood-forming organs and certain disorders involving the immune mechanism; Z88.7 Allergy status to serum and vaccine; Z88.8 Allergy status to other drugs, medicaments and biological substances

== ENCOUNTER 2020-10-21 15:28 | Emergency (ER) | payer MEDICAID ==
[~2020-10-21] VITALS: Ht 170.2 cm; Wt 113.4 kg
[~2020-10-21 15:28] MED LIST changes: +ONDANSETRON ODT4 MG PO; +PHENERGAN 25 MG25 M1 PO
[2020-10-21] MEDS ORDERED: INSULIN (15:40)
[2020-10-21] MEDS ORDERED: LANTUS SUBQ (15:40)
[2020-10-21 16:07] LABS: ABSOLUTE BASOPHILS 0.1 thou/uL (0.0-0.2); ABSOLUTE EOSINOPHILS 0.1 thou/uL (0.0-0.7); ABSOLUTE LYMPHOCYTES 1.6 thou/uL (0.8-5.3); ABSOLUTE MONOCYTES 0.6 thou/uL (0.0-1.2); ABSOLUTE NEUTROPHILS 6.4 thou/uL (1.6-8.1); BASOPHILS 0.6 %; EOSINOPHILS 0.8 %; HEMATOCRIT 35.8 % (37.0-47.0); HEMOGLOBIN 12.1 gm/dL (12.0-15.0); LYMPHOCYTES 18.5 %; MCH 27.7 pg (26.0-34.0); MCHC 33.8 g/dL (28.0-37.0); MONOCYTES 6.6 %; MPV 7.3 fl. (7.2-11.1); NUCLEATED RBCS 0 /100WBC; PLATELET COUNT* 292 thou/uL (150-400); POLYS 73.5 %; RBC 4.37 mil/uL (4.20-5.00); RDW-CV 14.9 % (10.5-14.5); WBC 8.7 thou/uL (4.0-11.0)
[2020-10-21 16:15] LABS: CALCIUM 8.8 mg/dL (8.5-10.1); CREATININE 0.7 mg/dL (0.6-1.3); POTASSIUM 3.7 mmol/L (3.5-5.1)
[2020-10-21 16:18] LABS: URINE BILIRUBIN NEGATIVE (Negative); URINE BLOOD NEGATIVE (Negative); URINE CLARITY CLEAR; URINE COLOR YELLOW; URINE GLUCOSE-RANDOM NEGATIVE (Negative); URINE KETONES 1+ (Negative); URINE LEUKOCYTES-REFLEX NEGATIVE (Negative); URINE NITRITE-REFLEX NEGATIVE (Negative); URINE PROTEIN NEGATIVE (Negative); URINE SPECIFIC GRAVITY >= 1.030 (1.005-1.030); URINE UROBILINOGEN 0.2 E.U./dl (0.2-1.0)
[2020-10-21 16:27] LABS: ALBUMIN 3.7 g/dL (3.4-5.0); TOTAL BILIRUBIN 0.3 mg/dL (<0.1-1.0); TOTAL PROTEIN 7.4 g/dL (6.4-8.2)
[2020-10-21] MEDS ORDERED: BACTRIM DS TAB1 EACH PO (17:34)
[2020-10-21 17:52] VITALS: BP 140/57
--- NOTE | 2020-10-22 10:21 | EKG ---
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: : 1955 Requested By: Chano Campos Order Number: [id number] MD: Varun Narayanan Measurements Intervals [place] Rate: 112 P: 46 [place]: 158 QRS: 18 QRSD: 95 T: 65 QT: 336 QTc: 459 Interpretive Statements Sinus tachycardia with pac that is aberrant Low voltage, precordial leads Baseline wander in lead(s) I,II,III,aVL,aVF,V2,V5 Compared to ECG 12/17/2019 16:22:13 pac now present Electronically Signed On 10-22-2020 10:21:22 CDT by Varun Narayanan [email or web address] <ELECTRONICALLY SIGNED> By: Varun Narayanan MD, FAC 10/22/20 1021 1539 1539 Vaurn Narayanan MD, [facility] /EPI
== END 2020-10-21 17:52 | disposition home or self-care (01) ==
LOC: M.ERS 15:28
PROVIDERS: Family Medicine
DX: R11.2 Nausea with vomiting, unspecified (principal); F42.4 Excoriation (skin-picking) disorder; E11.9 Type 2 diabetes mellitus without complications; I10 Essential (primary) hypertension; E78.5 Hyperlipidemia, unspecified; G47.30 Sleep apnea, unspecified; G89.29 Other chronic pain; E66.01 Morbid (severe) obesity due to excess calories; Z88.7 Allergy status to serum and vaccine; Z88.8 Allergy status to other drugs, medicaments and biological substances; Z86.711 Personal history of pulmonary embolism; Z86.2 Personal history of diseases of the blood and blood-forming organs and certain disorders involving the immune mechanism; Z87.01 Personal history of pneumonia (recurrent); Z68.39 Body mass index [BMI] 39.0-39.9, adult; Z79.4 Long term (current) use of insulin

== ENCOUNTER 2021-01-15 15:19 | Emergency (ER) | payer MEDICAID ==
[~2021-01-15] VITALS: Ht 170.2 cm; Wt 111.6 kg
[~2021-01-15 15:19] MED LIST changes: +BENAZEPRIL HCL20 MG PO; +COLACE 100 MG100 MG PO; +GLUCOTROL5 MG PO; +HYDROXYZINE HCL25 M2 PO; +INSULIN; +LANTUS SUBQ; +LEXAPRO 10 MG T10 M1 PO; +MIRAPEX 0.250.25 M1 PO; +NORCO7.5 PO; +NYSTATIN-TRIAMC15 GM TOP; +PROTONIX 20 MG20 M1 PO; +RISPERDAL 1 MG T1 MG PO
[2021-01-15 16:16] LABS: ABSOLUTE BASOPHILS 0.1 thou/uL (0.0-0.2); ABSOLUTE EOSINOPHILS 0.1 thou/uL (0.0-0.7); ABSOLUTE LYMPHOCYTES 1.8 thou/uL (0.8-5.3); ABSOLUTE NEUTROPHILS 9.2 thou/uL (1.6-8.1); BASOPHILS 0.8 %; EOSINOPHILS 0.6 %; LYMPHOCYTES 15.1 %; MCH 27.2 pg (26.0-34.0); MCHC 32.4 g/dL (28.0-37.0); MONOCYTES 8.1 %; MPV 8.4 fl. (7.2-11.1); NUCLEATED RBCS 0 /100WBC; PLATELET COUNT* 293 thou/uL (150-400); POLYS 75.4 %; RDW-CV 15.7 % (10.5-14.5); WBC 12.2 thou/uL (4.0-11.0)
[2021-01-15 16:17] LABS: BE -2.1 mmol/L (-2 to +3); PO2 VENOUS 65.8 mmHg (35.0-45.0)
[2021-01-15 16:24] LABS: CALCIUM 9.9 mg/dL (8.5-10.1)
[2021-01-15 16:28] LABS: ALBUMIN 3.8 g/dL (3.4-5.0); TOTAL BILIRUBIN 0.7 mg/dL (<0.1-1.0)
[2021-01-15 16:35] LABS: URINE BLOOD NEGATIVE (Negative); URINE CLARITY CLEAR; URINE COLOR YELLOW; URINE GLUCOSE-RANDOM NEGATIVE (Negative); URINE KETONES 1+ (Negative); URINE LEUKOCYTES-REFLEX NEGATIVE (Negative); URINE NITRITE-REFLEX NEGATIVE (Negative); URINE PROTEIN NEGATIVE (Negative); URINE SPECIFIC GRAVITY >= 1.030 (1.005-1.030); URINE UROBILINOGEN 0.2 E.U./dl (0.2-1.0)
[2021-01-15 16:36] LABS: URINE BILIRUBIN 1+ (Negative)
[2021-01-15 16:39] LABS: ICTOTEST (BILI CONFIRMATORY) Negative (Negative)
[2021-01-15 16:42] LABS: AMP/METHAMP POSITIVE (Negative); BARBITURATES Negative (Negative); BENZODIAZEPINES Negative (Negative); COCAINE Negative (Negative); METHADONE Negative (Negative); OPIATES POSITIVE (Negative); PCP Negative (Negative); THC POSITIVE (Negative)
[2021-01-15] MEDS ORDERED: NEOSPORIN OIN28.3 GM TOP (17:40)
[2021-01-15 19:02] VITALS: BP 143/83
--- NOTE | 2021-01-16 17:01 | EKG ---
[place] [address] ELECTROCARDIOGRAM REPORT Name: IESHA HERNANDEZ Room: [facility]#: [id number] Admission: 01/15/21 Attend Phys: Discharge: 01/15/21 Date of : 57 Date of Service: 01/15/21 1537 Report #: [id number] THIS REPORT FOR: //name// [facility] ED Test Date: 2021-01-15 Test Time: 15:37:04 Pat Name: IESHA HERNANDEZ Department: Room: Gender: F News Producer: TDS : 1955 Requested By: Duke Polk Order Number: [id number] MD: René Munguia Measurements Intervals [place] Rate: 126 P: 5 [place]: 141 QRS: 11 QRSD: 93 T: 74 QT: 322 QTc: 467 Interpretive Statements Sinus tachycardia Abnormal R-wave progression, early transition Borderline ST depression, lateral leads Minimal ST elevation, inferior leads Baseline wander in lead(s) III,aVL,aVF,V1 Compared to ECG 10/21/2020 15:39:31 ST (T wave) deviation now present ST (T wave) deviation now present Atrial premature complex(es) no longer present Electronically Signed On 01-16-2021 17:01:09 CDT by René Munguia [email or web address] <ELECTRONICALLY SIGNED> By: René Munguia MD, [facility] 01/16/21 1701 1537 1537 René Munguia MD, [facility] /EPI
== END 2021-01-15 19:03 | disposition home or self-care (01) ==
LOC: M.ERS 15:19
PROVIDERS: Emergency Medicine Emergency Medical Services
DX: L03.311 Cellulitis of abdominal wall (principal); F19.10 Other psychoactive substance abuse, uncomplicated; E11.9 Type 2 diabetes mellitus without complications; I10 Essential (primary) hypertension; G89.29 Other chronic pain; E66.01 Morbid (severe) obesity due to excess calories; Z88.7 Allergy status to serum and vaccine; Z79.899 Other long term (current) drug therapy